=== PATIENT | female | born 1940 | race Caucasian/White ===

== ENCOUNTER 2018-08-10 09:28 | Outpatient (CLI) | payer MEDICARE, OTHER ==
[2018-08-10] VITALS (8 sets, daily range): BP systolic 141–174; BP diastolic 57–78
[2018-08-10] MEDS ORDERED: CT SWABBABLE VALVE TRANS SET 1 EA INFUS.SET MC ONE (10:06)
[2018-08-10] MEDS ORDERED: METOPROLOL TARTRATE INJ 5 MG/5 ML AMPUL ONE (10:06)
[2018-08-10] MEDS ORDERED: IOHEXOL-350 100 ML VIAL IV ONE ×2 (10:07→11:01)
[2018-08-10] MEDS ORDERED: IV NS 0.9% 250 ML IV ONE (10:07)
--- NOTE | 2018-08-10 10:30 | NUR ---
Pt received, A&Ox4, no distress noted, ambulatory; medical hx, orders reviewed in paper chart with pt. DON. IV HL started on R AC #18. flushed patent. Metoprolol IVP administered per protocol to achieve HR within parameters. Educated throughout procedure.
--- NOTE | 2018-08-10 11:35 | NUR ---
IV HL dc'd, VSS, no distress noted. Ambulated with steady gait to bathroom. DC in stable condition with all belongings accompanied by RN. Picked up by son.
== END 2018-08-10 23:59 | disposition home or self-care (01) ==
LOC: CT 09:28
PROVIDERS: ATTEND Internal Medicine Interventional Cardiology
DX: I65.21 Occlusion and stenosis of right carotid artery (principal); I70.0 Atherosclerosis of aorta
CPT/HCPCS: 75574; J3490; J7050; Q9967 ×2

== ENCOUNTER 2019-05-12 07:13 | Outpatient (CLI) | payer MEDICARE, OTHER ==
[2019-05-12] MEDS ORDERED: REGADENOSON 0.4 MG/5 ML DISP.SYRIN IVP ONE (08:30)
== END 2019-05-12 23:59 | disposition home or self-care (01) ==
LOC: NM 07:13
PROVIDERS: ATTEND Internal Medicine Interventional Cardiology
DX: R07.9 Chest pain, unspecified (principal); I10 Essential (primary) hypertension; R55 Syncope and collapse; M19.90 Unspecified osteoarthritis, unspecified site
CPT/HCPCS: 78452; A9502; J2785

== ENCOUNTER 2019-08-07 07:29 | Emergency (ER) | payer MEDICARE, OTHER ==
[~2019-08-07] VITALS: Ht 154.9 cm; Wt 72.1 kg
--- NOTE | 2019-08-07 07:35 | NUR ---
CAME IN FOR R SHOULDER AND ARM PAIN x 1WEEK, DENIES INJURY/TRAUMA. WENT TO PAIN MANAGEMENT MD, INJECTED MEDS, WORST PAIN TODAY 10/10PS. TO ER BED 9, HOOKED TO MONITOR, PROVIDED W WARM BLANKET, DR WILDE AT BEDSIDE
--- NOTE | 2019-08-07 07:43 | NUR ---
SCORER HELPER AT BEDSIDE
--- NOTE | 2019-08-07 08:37 | NUR ---
Patient discharged to home with family in stable condition. Written and verbal after care instructions given. Patient verbalizes understanding of instruction.
[2019-08-07 08:38] VITALS: BP 137/84
== END 2019-08-07 08:38 | disposition home or self-care (01) ==
LOC: ER 07:35
DX: M25.511 Pain in right shoulder (principal); I10 Essential (primary) hypertension; F41.9 Anxiety disorder, unspecified; Z98.890 Other specified postprocedural states
CPT/HCPCS: 73030-TC

== ENCOUNTER 2019-08-13 08:37 | Emergency (ER) | payer MEDICARE, OTHER ==
[~2019-08-13] VITALS: Ht 157.5 cm; Wt 68.0 kg
[2019-08-13 08:43] VITALS: BP 153/92
[2019-08-13] MEDS ORDERED: HYDROMORPHONE 1 MG/1 ML DISP.SYRIN ONE (08:54)
[2019-08-13] MEDS ORDERED: ONDANSETRON 4 MG TAB.RAPDIS SL ONE (09:00)
[2019-08-13] MEDS ORDERED: KETOROLAC TROMETHAMINE INJ 30 MG/ML VIAL IM ONE (09:00)
[2019-08-13] MEDS ORDERED: HYDROMORPHONE 1 MG/1 ML DISP.SYRIN IM ONE (09:00)
[2019-08-13] MEDS ORDERED: ONDANSETRON 4 MG TAB.RAPDIS ONE (09:00)
[2019-08-13] MEDS ORDERED: KETOROLAC TROMETHAMINE INJ 30 MG/ML VIAL ONE (09:00)
== END 2019-08-13 09:08 | disposition home or self-care (01) ==
LOC: ER 08:37
DX: M54.12 Radiculopathy, cervical region (principal); I10 Essential (primary) hypertension; F41.9 Anxiety disorder, unspecified; Z98.890 Other specified postprocedural states
CPT/HCPCS: 96372 ×2; 99283; J1170; J1885; Q0162

== ENCOUNTER 2019-09-30 13:20 | Inpatient (IN) | payer MEDICARE, OTHER ==
[~2019-09-30] VITALS: Ht 154.9 cm; Wt 69.9 kg
--- NOTE | 2019-09-30 13:40 | NUR ---
INTERMITTENT MIDSTERNAL CHEST PAIN X 3 DAYS. PATIENT A/OX4, BREATHING EVEN AND UNLABORED, NO SOB NOTED, KEPT COMFORTABLE. CHANGED INTO GOWN, ATTACHED TO THE COBBLER APPRENTICE.
[2019-09-30 13:42] LABS: BASOPHILS # (AUTO) 0.1 /CMM (0.0-0.2); BASOPHILS % (AUTO) 1.4 % (0.0-2.0); EOSINOPHILS % (AUTO) 3.4 % (0.0-6.0); HEMATOCRIT 39 % (33-45); HEMOGLOBIN 12.8 g/dL (11.5-14.8); LYMPHOCYTES # (AUTO) 2.3 /CMM (0.8-4.8); LYMPHOCYTES % (AUTO) 26.5 % (20.0-44.0); MEAN CORPUSCULAR HGB CONC 33 g/dl (31.0-36.0); MEAN CORPUSCULAR VOLUME 88 fL (82-100); MONOCYTES # (AUTO) 0.7 /CMM (0.1-1.30); MONOCYTES % (AUTO) 7.8 % (2.0-12.0); NEUTROPHILS # (AUTO) 5.4 /CMM (1.8-8.9); NEUTROPHILS % (AUTO) 60.9 % (43.0-81.0); PLATELET COUNT (AUTO) 269 /CMM (150-450); RED BLOOD CELL COUNT(AUTO) 4.46 MIL/uL (4.0-5.2); WHITE BLOOD COUNT (AUTO) 8.8 K/uL (4.3-11.0)
[2019-09-30 13:50] LABS: CALCIUM, SERUM 8.6 mg/dL (8.5-10.1); CARBON DIOXIDE 30 mmol/L (21-32); CHLORIDE 107 mmol/L (98-107); CREATININE 0.7 mg/dL (0.6-1.3); GLUCOSE 96 mg/dL (74-106); POTASSIUM 3.6 mmol/L (3.5-5.1); SODIUM SERUM 143 mmol/L (136-145); UREA NITROGEN, BLOOD 22 mg/dL (7-18)
[2019-09-30] MEDS ORDERED: MELO-107 PO (14:32)
[2019-09-30] MEDS ORDERED: QUET25TA PO (14:32)
[2019-09-30] MEDS ORDERED: LEVO50TA8 PO (14:32)
[2019-09-30] MEDS ORDERED: ERGO500014 PO (14:32)
[2019-09-30] MEDS ORDERED: GABA-532 PO (14:32)
[2019-09-30] MEDS ORDERED: SIMV-46 PO (14:32)
[2019-09-30] MEDS ORDERED: AMLO5TAB9 PO (14:32)
[2019-09-30] MEDS ORDERED: LOSA100T31 PO (14:32)
[2019-09-30] MEDS ORDERED: DULO30CA52 PO (14:32)
--- NOTE | 2019-09-30 14:58 | NUR ---
SUBMITTED MOVE SHEET AND CALLED FOR TELE BED. DR. KEY
[2019-09-30] MEDS ORDERED: OMEP20CA15 PO (15:18)
--- NOTE | 2019-09-30 15:30 | NUR ---
PATIENT STILL C/O MILD CHEST PAIN, NO DISTRESS, KEPT COMFORTABLE. AMBULATE TO RESTROOM.
--- NOTE | 2019-09-30 16:15 | NUR ---
GOT BED 112-2
--- NOTE | 2019-09-30 16:49 | NUR ---
REPORT GIVEN TO ZACK ROCA.
--- NOTE | 2019-09-30 17:29 | NUR ---
HORACE CALLED ITS AUDREY
--- NOTE | 2019-09-30 17:47 | NUR ---
PATIENT TRANSFERRED TO ROOM 112-2 VIA ACLS PROTOCOL. IN NO DISTRESS, AMBULATORY WITH STEADY GAIT. ENDORSED TO ZACK ROCA.
--- NOTE | 2019-09-30 17:50 | NUR ---
Received patient awake , alert and oriented x4 , gait is steady, able to walk with no assistance, independent with ADL's. Breathing even and unlabored on room air, saturating 98%. VS are stable. Skin inspected and intact. Patient on regular diet at home. IV line to the left AC G 18 flushing well. Home medications provided. Patient oriented to to the unit and room; educated to use call light for assistance. Patient denies chest pain at this time. Patient placed on tele monitor ; NSR 63 with PVS's .Safety precautions implemented. Valuable form completed and sighed by patient. Admitting doctor Jonah , called from ER. Awaiting for adm. orders.
[2019-09-30 18:29] VITALS: BP 121/56
--- NOTE | 2019-09-30 19:50 | NUR ---
RN Notes Patient awake, alert and oriented x4, on semi fowlers position, on room air with good saturation. Patient denies chest pain, SOB, nausea and vomiting at this time. IV access on left AC patent and intact. Admission orders received from Dr Liang, noted and carried out. Plan of care discussed with the patient and verbalized understanding. Kept comfortable and attended with call light within reach. Will continue to monitor patient.
[2019-09-30 20:00] VITALS: BP 117/64
[2019-09-30] MEDS ORDERED: MAGNESIUM HYDROXIDE 30 ML UDC PO PRN (20:00)
[2019-09-30] MEDS ORDERED: ONDANSETRON HCL/PF 4 MG/2 ML VIAL IVP PRN (20:00)
[2019-09-30] MEDS ORDERED: ZOLPIDEM TARTRATE 5 MG TABLET PO PRN (20:00)
[2019-09-30] MEDS ORDERED: MAG HYDROX/AL HYDROX/SIMETH 30 ML UDC PO PRN (20:00)
[2019-09-30] MEDS ORDERED: ACETAMINOPHEN 325 MG TABLET PO PRN (20:00)
[2019-09-30] MEDS ORDERED: Z GUARD REMEDY 2 OZ OINT TP PRN (20:00)
[2019-09-30] MEDS: QUETIAPINE FUMARATE 25 MG TABLET PO SCH (21:21)
[2019-09-30] MEDS: HYDROCODONE/APAP 5/325MG 1 EACH TABLET PO PRN (23:47)
--- NOTE | 2019-09-30 23:47 | NUR ---
RN Notes Per patient she has chronic pain in her right arm, and now complaining of pain 03/03. [place] 5/325 mg tab given PO. Will continue to monitor.
[2019-10-01] VITALS (7 sets, daily range): BP systolic 111–150; BP diastolic 46–62
[2019-10-01] MEDS: HYDROCODONE/APAP 5/325MG 1 EACH TABLET PO PRN ×3 (04:09→21:07)
--- NOTE | 2019-10-01 04:09 | NUR ---
RN Notes Patient complains of pain in her right arm, 03/03. [place] 5/325 mg tab given PO. Will continue to monitor.
[2019-10-01 07:22] LABS: BASOPHILS % (AUTO) 0.6 % (0.0-2.0); EOSINOPHILS % (AUTO) 3.7 % (0.0-6.0); HEMATOCRIT 37 % (33-45); HEMOGLOBIN 12.2 g/dL (11.5-14.8); LYMPHOCYTES # (AUTO) 2.4 /CMM (0.8-4.8); LYMPHOCYTES % (AUTO) 35.5 % (20.0-44.0); MEAN CORPUSCULAR HGB CONC 33 g/dl (31.0-36.0); MEAN CORPUSCULAR VOLUME 87 fL (82-100); MONOCYTES # (AUTO) 0.5 /CMM (0.1-1.30); MONOCYTES % (AUTO) 7.6 % (2.0-12.0); NEUTROPHILS # (AUTO) 3.5 /CMM (1.8-8.9); NEUTROPHILS % (AUTO) 52.6 % (43.0-81.0); PLATELET COUNT (AUTO) 215 /CMM (150-450); WHITE BLOOD COUNT (AUTO) 6.7 K/uL (4.3-11.0)
[2019-10-01 07:27] LABS: CHOLESTEROL 169 mg/dL (<200); HDL CHOLESTEROL 56 mg/dL (40-60); LDL 94 mg/dL (0-99); TRIGLYCERIDES 125 mg/dL (30-150)
--- NOTE | 2019-10-01 07:29 | NUR ---
RN Notes Patient sleep well overnight, vital signs stable, afebrile. Tele monitor reads sinus rhythm with PVCs. Denies chest pain, SOB, nausea and vomiting. Patient complain of pain on the right arm managed with [place] with mild relief, per patient its chronic. All needs met. Endorsed accordingly.
[2019-10-01] MEDS: PANTOPRAZOLE 40 MG TABLET.DR PO SCH (07:39)
[2019-10-01] MEDS: LEVOTHYROXINE SODIUM 50 MCG TABLET PO SCH (07:39)
--- NOTE | 2019-10-01 07:45 | NUR ---
RN OPENING NOTES RECEIVED PT IN BED, A/O X4. VERBALLY RESPONSIVE AND ABLE TO MAKE NEEDS KNOWN. DENIES ANY PAIN AT THE MOMENT. IN NO APPARENT DISTRESS NOTED. ON ROOM AIR, NO SOB NOTED. IV ACCESS ON LAC #18 SALINE LOCKED, INTACT, PATENT, AND FLUSHED WELL. NO INFILTRATION NOTED. BED ON LOWEST POSITION AND LOCKED. CALL LIGHT WITHIN REACH FOR EASY ACCESS. WILL CONTINUE TO MONITOR
[2019-10-01 08:23] LABS: CALCIUM, SERUM 8.8 mg/dL (8.5-10.1); CARBON DIOXIDE 26 mmol/L (21-32); CHLORIDE 107 mmol/L (98-107); CREATININE 0.7 mg/dL (0.6-1.3); GLUCOSE 106 mg/dL (74-106); PHOSPHORUS 4.3 mg/dL (2.5-4.9); POTASSIUM 3.6 mmol/L (3.5-5.1); SODIUM SERUM 143 mmol/L (136-145); UREA NITROGEN, BLOOD 21 mg/dL (7-18)
[2019-10-01] MEDS: ASPIRIN 81 MG TAB.CHEW PO SCH (08:41)
[2019-10-01] MEDS: GABAPENTIN 100 MG CAPSULE PO SCH ×2 (08:41→17:17)
[2019-10-01] MEDS: DULOXETINE HCL 30 MG CAPSULE.DR PO SCH (08:42)
[2019-10-01] MEDS: AMLODIPINE BESYLATE 5 MG TABLET PO SCH (08:42)
[2019-10-01] MEDS: LOSARTAN POTASSIUM 50 MG TABLET PO SCH (08:42)
[2019-10-01] MEDS ORDERED: IV NS 0.9% 500 ML IV PRN (09:00)
[2019-10-01] MEDS ORDERED: NITROGLYCERIN 0.4 MG/TAB BOTTLE SL ONE (09:00)
[2019-10-01] MEDS ORDERED: METOPROLOL TARTRATE INJ 5 MG/5 ML AMPUL IVP PRN (09:00)
[2019-10-01] MEDS ORDERED: IV NS 0.9% 250 ML IV ONE (09:06)
[2019-10-01] MEDS ORDERED: IOHEXOL-350 100 ML VIAL IV ONE (09:06)
[2019-10-01] MEDS ORDERED: NITROGLYCERIN 0.4 MG/TAB BOTTLE ONE (09:10)
[2019-10-01] MEDS ORDERED: METOPROLOL TARTRATE INJ 5 MG/5 ML AMPUL ONE (09:17)
--- NOTE | 2019-10-01 09:26 | NUR ---
CTA heart completed given Metoprolol 5mg IVP and NTG 0.5 mg Sl. tolerated procedure; denies CP/SOB at this time; sent to floor via wheelchair
[2019-10-01] MEDS: POTASSIUM CHLORIDE 20 MEQ TAB.PRT.SR PO SCH ×3 (09:46→11:01)
[2019-10-01] MEDS: IV NS 0.9% 1,000 ML IV SCH ×2 (09:50→17:00)
--- NOTE | 2019-10-01 17:00 | NUR ---
RN NOTES NS 0.9% 1000ML THAT IS SCHEDULED FOR 1700 IS NOT ADMINISTERED DUE TO THE PREVIOUS IV FLUIDS IS NOT FINISHED YET.
[2019-10-01] MEDS ORDERED: SIMVASTATIN 20 MG TABLET PO SCH (18:00)
--- NOTE | 2019-10-01 18:54 | NUR ---
RN NOTES PATIENT REFUSED TO FINISHED HER IV FLUIDS. VERBALIZED NOT WANTING TO HAVE IT ANYMORE. EXPLAINED RISKS AND BENEFITS TOGETHER WITH THE PM NURSE AT BEDSIDE, STILL REFUSED TO HAVE IT RUNNING.
--- NOTE | 2019-10-01 19:00 | NUR ---
MS RN OPENING NOTES: RECEIVED PATIENT RESTING IN BED, A/O X4. REFUSED THE IVF,DESPITE OF TELLING HER THE IMPORTANCE OF THE IVF. AMBULATORY, STEADY GAIT. NO SOB NOTED. CALL LIGHT WITHIN REACH. BED IN LOWEST AND LOCKED POSITION.
--- NOTE | 2019-10-01 19:18 | NUR ---
RN CLOSING NOTES PATIENT IN BED, AWAKE, RESTING COMFORTABLY. IN NO APPARENT DISTRESS. VITAL SIGNS STABLE. IV ACCESS ON L AC INTACT. NO SIGNS OF INFILTRATION NOTED. ON ROOM AIR, SATURATING WELL. NO SOB NOTED. ALL NEEDS MET. ENDORSED TO PM RN FOR CONTINUITY OF CARE AND AWARE ABOUT THE REFUSAL OF IV FLUIDS
--- NOTE | 2019-10-01 20:38 | NUR ---
V/S TAKEN BY CRISTI ALMEIDA, RECORDED. AFEBRILE.
[2019-10-01] MEDS: QUETIAPINE FUMARATE 25 MG TABLET PO SCH (21:00)
[2019-10-02 04:00] VITALS: BP 150/62
--- NOTE | 2019-10-02 04:58 | NUR ---
MS RN CLOSING NOTES: PATIENT IS RESTING IN BED, CALL LIGHT WITHIN REACH. BED IN LOWEST AND LOCKED POSITION. AMBULATORY.
[2019-10-02 06:30] LABS: BASOPHILS % (AUTO) 0.9 % (0.0-2.0); EOSINOPHILS % (AUTO) 4.3 % (0.0-6.0); HEMATOCRIT 35 % (33-45); HEMOGLOBIN 11.5 g/dL (11.5-14.8); LYMPHOCYTES # (AUTO) 1.9 /CMM (0.8-4.8); MEAN CORPUSCULAR HGB CONC 33 g/dl (31.0-36.0); MEAN CORPUSCULAR VOLUME 87 fL (82-100); MONOCYTES # (AUTO) 0.4 /CMM (0.1-1.30); MONOCYTES % (AUTO) 6.9 % (2.0-12.0); NEUTROPHILS # (AUTO) 2.9 /CMM (1.8-8.9); NEUTROPHILS % (AUTO) 52.9 % (43.0-81.0); PLATELET COUNT (AUTO) 195 /CMM (150-450); RED BLOOD CELL COUNT(AUTO) 3.98 MIL/uL (4.0-5.2); WHITE BLOOD COUNT (AUTO) 5.5 K/uL (4.3-11.0)
[2019-10-02 06:45] LABS: BILIRUBIN,TOTAL 0.2 mg/dL (0.2-1.0); CALCIUM, SERUM 8.3 mg/dL (8.5-10.1); CREATININE 0.7 mg/dL (0.6-1.3); MAGNESIUM 1.9 mg/dL (1.8-2.4); PHOSPHORUS 4.1 mg/dL (2.5-4.9); POTASSIUM 3.8 mmol/L (3.5-5.1); TOTAL PROTEIN, SERUM 6.1 g/dL (6.4-8.2)
--- NOTE | 2019-10-02 07:22 | NUR ---
MS RN OPENING NOTE RECEIVED PATIENT IN BED SLEEPING COMFORTABLY. PATIENT IN NO ACUTE DISTRESS. NO SOB NOTED. PATIENT BREATHING IS EVEN AND UNLABORED. PATIENT SAFETY PRECAUTIONS IN PLACE. PATIENT BED IS LOCKED AND IN LOWEST POSITION. CALL LIGHT WITHIN REACH. WILL CONTINUE TO MONITOR.
[2019-10-02 08:00] VITALS: BP_SYST 121; BP_SYST 128; BP_DIAS 59; BP_DIAS 63
[2019-10-02] MEDS: DULOXETINE HCL 30 MG CAPSULE.DR PO SCH (08:06)
[2019-10-02] MEDS: GABAPENTIN 100 MG CAPSULE PO SCH (08:06)
[2019-10-02] MEDS: LOSARTAN POTASSIUM 50 MG TABLET PO SCH (08:07)
[2019-10-02] MEDS: PANTOPRAZOLE 40 MG TABLET.DR PO SCH (08:07)
[2019-10-02] MEDS: ASPIRIN 81 MG TAB.CHEW PO SCH (08:07)
[2019-10-02] MEDS: LEVOTHYROXINE SODIUM 50 MCG TABLET PO SCH (08:07)
[2019-10-02] MEDS: AMLODIPINE BESYLATE 5 MG TABLET PO SCH (08:07)
[2019-10-02] MEDS ORDERED: ASPI-1169 PO (09:19)
--- NOTE | 2019-10-02 11:00 | NUR ---
MS RN NOTE PATIENT REFUSING SKIN ASSESSMENT. EDUCATED RISKS VS BENEFITS. PATIENT CONTINUES TO REFUSE.
[2019-10-02 12:00] VITALS: BP 122/58
--- NOTE | 2019-10-02 13:58 | NUR ---
MS PROPRIETARY TRADER NOTE PATIENT MEDICALLY CLEARED FOR DISCHARGE. PATIENT IN NO ACUTE DISTRESS. NO SOB NOTED. PATIENT BREATHING IS EVEN AND UNLABORED. VITAL SIGNS WNL. DC INSTRUCTIONS PROVIDED. PATIENT VERBALIZED UNDERSTANDING. PATIENT REFUSED TO HAVE SKIN ASSESSMENT. EDUCATED RISKS VS BENEFITS. PATIENT CONTINUED TO REFUSE. PATIENT IV REMOVED. ID BAND REMOVED. PATIENT SIGNED BELONGINGS LIST AND HAS BELONGINGS WITH HER. PATIENT KEPT CLEAN, DRY AND COMFORTABLE THROUGHOUT SHIFT. PATIENT NEEDS AND CONCERNS ADDRESSED. PATIENT GOING BACK HOME WITH SON, AMBULATORY WITH STEADY GAIT BACK TO CAR. MD AWARE OF DISCHARGE.
[2019-10-03] MEDS ORDERED: ERGOCALCIFEROL (VITAMIN D 2) 50,000 UNIT CAPSULE PO SCH (09:00)
== END 2019-10-02 14:15 | disposition home or self-care (01) | DRG 552 ==
LOC: ER 13:21 → TELE1 16:48 → MEDSG1 10-01 10:29
PROVIDERS: ADMIT Internal Medicine; ATTEND Internal Medicine
DX: M54.14 Radiculopathy, thoracic region (principal); N17.9 Acute kidney failure, unspecified; I10 Essential (primary) hypertension; E78.5 Hyperlipidemia, unspecified; I25.10 Atherosclerotic heart disease of native coronary artery without angina pectoris; F41.9 Anxiety disorder, unspecified; F32.9 Major depressive disorder, single episode, unspecified; Z98.890 Other specified postprocedural states; M54.12 Radiculopathy, cervical region; Z79.899 Other long term (current) drug therapy; G89.29 Other chronic pain; I70.0 Atherosclerosis of aorta; E66.9 Obesity, unspecified; G47.33 Obstructive sleep apnea (adult) (pediatric); I25.84 Coronary atherosclerosis due to calcified coronary lesion; J84.10 Pulmonary fibrosis, unspecified
CPT/HCPCS: 36415; 70450-TC; 71045-TC; 75574; 80048-TC; 80053-TC; 80061-TC; 83735-TC; 84100-TC; 84484-TC; 85025-TC; 85652-TC; 87081-TC; G0378; J3490; J7030; J7050; Q9967

== ENCOUNTER 2021-01-16 11:14 | Outpatient (CLI) | payer MEDICARE, OTHER ==
[~2021-01-16 11:14] MED LIST: AMLO-212 PO; ASPI-1169 PO; DULO30CA52 PO; ERGO500014 PO; LEVO50TA8 PO; LOSA100T31 PO; MELO-107 PO; OMEP20CA15 PO; QUET25TA PO; SIMV-46 PO
== END 2021-01-16 23:59 | disposition home or self-care (01) ==
LOC: MSC 11:14
PROVIDERS: ATTEND Internal Medicine
DX: M81.0 Age-related osteoporosis without current pathological fracture (principal)
CPT/HCPCS: 96372; J0897

== ENCOUNTER 2021-05-18 16:21 | Outpatient (CLI) | payer MEDICARE, OTHER ==
[~2021-05-18 16:21] MED LIST changes: -ERGO500014 PO; +ERGO500093 PO
== END 2021-05-18 23:59 | disposition home or self-care (01) ==
LOC: MSC 16:21
PROVIDERS: ATTEND Internal Medicine
DX: N39.0 Urinary tract infection, site not specified (principal); R06.02 Shortness of breath; I10 Essential (primary) hypertension; M81.0 Age-related osteoporosis without current pathological fracture; M43.26 Fusion of spine, lumbar region; G47.00 Insomnia, unspecified; J44.9 Chronic obstructive pulmonary disease, unspecified; G47.33 Obstructive sleep apnea (adult) (pediatric); K22.70 Barrett's esophagus without dysplasia; M19.90 Unspecified osteoarthritis, unspecified site

== ENCOUNTER → 2021-05-22 | Outpatient (CLI) | payer MEDICARE, OTHER | END | disposition home or self-care (01) | LOC: MSC 14:15 | PROVIDERS: ATTEND Internal Medicine | DX: N39.0 Urinary tract infection, site not specified (principal); R06.02 Shortness of breath; I10 Essential (primary) hypertension; M81.0 Age-related osteoporosis without current pathological fracture; M43.26 Fusion of spine, lumbar region; G47.00 Insomnia, unspecified; J44.9 Chronic obstructive pulmonary disease, unspecified; G47.33 Obstructive sleep apnea (adult) (pediatric); K22.70 Barrett's esophagus without dysplasia; M19.90 Unspecified osteoarthritis, unspecified site ==

== ENCOUNTER 2021-06-12 09:16 | Outpatient (CLI) | payer MEDICARE, OTHER ==
[2021-06-12 10:41] LABS: ALBUMIN 3.7 g/dL (3.4-5.0); BILIRUBIN,TOTAL 0.2 mg/dL (0.2-1.0); CALCIUM, SERUM 8.3 mg/dL (8.5-10.1); CREATININE 0.8 mg/dL (0.6-1.3); MAGNESIUM 1.7 mg/dL (1.8-2.4); PHOSPHORUS 3.4 mg/dL (2.5-4.9); POTASSIUM 3.4 mmol/L (3.5-5.1)
[2021-06-12 13:14] LABS: BASOPHILS % (AUTO) 0.2 % (0.0-2.0); EOSINOPHILS % (AUTO) 4.6 % (0.0-6.0); HEMATOCRIT 38 % (33-45); HEMOGLOBIN 12.3 g/dL (11.5-14.8); LYMPHOCYTES # (AUTO) 1.6 K/uL (0.8-4.8); LYMPHOCYTES % (AUTO) 29.4 % (20.0-44.0); MEAN CORPUSCULAR HGB CONC 32 g/dl (31.0-36.0); MEAN CORPUSCULAR VOLUME 87 fL (82-100); MONOCYTES # (AUTO) 0.3 K/uL (0.1-1.30); NEUTROPHILS # (AUTO) 3.3 K/uL (1.8-8.9); NEUTROPHILS % (AUTO) 59.8 % (43.0-81.0); PLATELET COUNT (AUTO) 242 K/uL (150-450); RED BLOOD CELL COUNT(AUTO) 4.38 MIL/uL (4.0-5.2); WHITE BLOOD COUNT (AUTO) 5.6 K/uL (4.3-11.0)
== END 2021-06-12 23:59 | disposition home or self-care (01) ==
LOC: MSC 09:16
PROVIDERS: ATTEND Internal Medicine
DX: Z01.818 Encounter for other preprocedural examination (principal); G89.29 Other chronic pain; M54.50 Low back pain, unspecified; M43.26 Fusion of spine, lumbar region; Z87.440 Personal history of urinary (tract) infections; I10 Essential (primary) hypertension; M81.0 Age-related osteoporosis without current pathological fracture; R06.00 Dyspnea, unspecified; J44.9 Chronic obstructive pulmonary disease, unspecified; G47.00 Insomnia, unspecified; G47.33 Obstructive sleep apnea (adult) (pediatric); K22.70 Barrett's esophagus without dysplasia; M19.90 Unspecified osteoarthritis, unspecified site; Z79.899 Other long term (current) drug therapy
CPT/HCPCS: 36415; 71045; 80053; 80061; 83735; 84100; 85025; 85730; G0463

== ENCOUNTER → 2021-06-22 | Outpatient (CLI) | payer MEDICARE, OTHER | END | disposition home or self-care (01) | LOC: MSC 15:00 | PROVIDERS: ATTEND Internal Medicine | DX: N39.0 Urinary tract infection, site not specified (principal); I10 Essential (primary) hypertension; M81.0 Age-related osteoporosis without current pathological fracture; M43.26 Fusion of spine, lumbar region; R06.00 Dyspnea, unspecified; J44.9 Chronic obstructive pulmonary disease, unspecified; G47.00 Insomnia, unspecified; G47.33 Obstructive sleep apnea (adult) (pediatric); K22.70 Barrett's esophagus without dysplasia; M19.90 Unspecified osteoarthritis, unspecified site; Z79.899 Other long term (current) drug therapy ==

== ENCOUNTER 2021-08-30 09:48 | Outpatient (CLI) | payer MEDICARE, OTHER | END 2021-08-30 23:59 | disposition home or self-care (01) | LOC: MSC 09:48 | PROVIDERS: ATTEND Internal Medicine | DX: M54.16 Radiculopathy, lumbar region (principal); M43.26 Fusion of spine, lumbar region; M81.0 Age-related osteoporosis without current pathological fracture; M19.90 Unspecified osteoarthritis, unspecified site; Z79.1 Long term (current) use of non-steroidal anti-inflammatories (NSAID); G47.00 Insomnia, unspecified; Z87.440 Personal history of urinary (tract) infections; R06.00 Dyspnea, unspecified; I10 Essential (primary) hypertension; J44.9 Chronic obstructive pulmonary disease, unspecified; Z79.51 Long term (current) use of inhaled steroids; G47.33 Obstructive sleep apnea (adult) (pediatric); K22.70 Barrett's esophagus without dysplasia; Z79.899 Other long term (current) drug therapy ==

== ENCOUNTER 2021-09-05 09:50 | Outpatient (CLI) | payer MEDICARE, OTHER ==
--- NOTE | 2021-10-02 11:01 | NUR ---
Late Entrance done by TIMOTHY 10/02/2021 at 1055. Order obtained and reviewed. Prolia 60mg/1ml given on right arm subq Patient tolerated procedure well. pt is scheduled to return in 6 months. TIMOTHY
== END 2021-09-05 23:59 | disposition home or self-care (01) ==
LOC: MSC 09:50
PROVIDERS: ATTEND Internal Medicine
DX: M81.0 Age-related osteoporosis without current pathological fracture (principal)
CPT/HCPCS: J0897 ×2; 96372

== ENCOUNTER 2021-10-10 18:23 | Inpatient (IN) | payer MEDICARE, OTHER ==
[~2021-10-10] VITALS: Ht 160 cm; Wt 73.5 kg
[2021-10-10] MEDS ORDERED: ALBUTEROL FS 2.5 MG/3 ML VIAL.NEB NEB ONE (18:30)
[2021-10-10] MEDS ORDERED: predniSONE 20 MG TABLET PO ONE (18:30)
[2021-10-10] MEDS ORDERED: LORAZEPAM INJ 2 MG/ML VIAL IV ONE (18:30)
[2021-10-10] MEDS ORDERED: IV NS 0.9% 1,000 ML IV ONE (18:30)
[2021-10-10] MEDS ORDERED: IPRATROPIUM NEB FS 0.5 MG/2.5 ML AMPUL.NEB NEB ONE (18:30)
[2021-10-10] MEDS ORDERED: predniSONE 20 MG TABLET ONE (18:36)
[2021-10-10] MEDS ORDERED: LORAZEPAM INJ 2 MG/ML VIAL ONE (18:37)
--- NOTE | 2021-10-10 18:41 | NUR ---
TIFFANY FROM HOME C/O SOB W/ INITIAL SATS IN THE 70'S WHILE USING SPIROMETER ARRIVED ON CPAP, PT C/O SOB SINCE YESTERDAY. WORST X 2 HOURS. THE OXYGEN SATURATION IN ROOM AIR IS AT 93%. THE PATIENT DENIES PAIN. ATTACHED TO THE MONITOR. WILL CONTINUE TO MONITOR THE PATIENT.
--- NOTE | 2021-10-10 18:56 | NUR ---
VENETIAN BLIND CLEANER AT THE BEDSIDE
--- NOTE | 2021-10-10 18:56 | NUR ---
BLOOD SPECIMEN COLLECTED AND SENT TO THE LAB
[2021-10-10] MEDS ORDERED: ALBUTEROL FS 2.5 MG/3 ML VIAL.NEB ONE (19:00)
[2021-10-10] MEDS ORDERED: IPRATROPIUM NEB FS 0.5 MG/2.5 ML AMPUL.NEB ONE (19:00)
--- NOTE | 2021-10-10 19:18 | NUR ---
REPORT GIVEN TO NURSE KELSIE FOR ADONAY
[2021-10-10 19:59] LABS: BASOPHILS # (AUTO) 0.1 K/uL (0.0-0.2); BASOPHILS % (AUTO) 0.9 % (0.0-2.0); EOSINOPHILS % (AUTO) 2.1 % (0.0-6.0); HEMATOCRIT 32 % (33-45); HEMOGLOBIN 10.6 g/dL (11.5-14.8); LYMPHOCYTES % (AUTO) 17.5 % (20.0-44.0); MEAN CORPUSCULAR HGB CONC 33 g/dl (31.0-36.0); MEAN CORPUSCULAR VOLUME 86 fL (82-100); MONOCYTES # (AUTO) 0.2 K/uL (0.1-1.30); MONOCYTES % (AUTO) 4.2 % (2.0-12.0); NEUTROPHILS # (AUTO) 4.4 K/uL (1.8-8.9); NEUTROPHILS % (AUTO) 75.3 % (43.0-81.0); PLATELET COUNT (AUTO) 211 K/uL (150-450); RED BLOOD CELL COUNT(AUTO) 3.76 MIL/uL (4.0-5.2); WHITE BLOOD COUNT (AUTO) 5.9 K/uL (4.3-11.0)
--- NOTE | 2021-10-10 20:00 | NUR ---
COVID ANTIGEN SWAB DONE, SENT TO LAB
[2021-10-10 20:30] LABS: CALCIUM, SERUM 8.5 mg/dL (8.5-10.1); CREATININE 0.8 mg/dL (0.6-1.3); POTASSIUM 3.9 mmol/L (3.5-5.1); TOTAL PROTEIN, SERUM 7.1 g/dL (6.4-8.2)
[2021-10-10 20:40] LABS: ALBUMIN 3.3 g/dL (3.4-5.0)
--- NOTE | 2021-10-10 20:56 | NUR ---
TELE 326-2
[2021-10-10] MEDS ORDERED: ONDANSETRON HCL/PF 4 MG/2 ML VIAL IVP PRN (21:00)
[2021-10-10] MEDS ORDERED: MAGNESIUM HYDROXIDE 30 ML UDC PO PRN (21:00)
[2021-10-10] MEDS ORDERED: Z GUARD REMEDY 4 OZ OINT TP PRN (21:00)
[2021-10-10] MEDS ORDERED: FUROSEMIDE 40 MG/4 ML VIAL IV ONE (21:00)
[2021-10-10] MEDS ORDERED: MAG HYDROX/AL HYDROX/SIMETH 30 ML UDC PO PRN (21:00)
[2021-10-10] MEDS ORDERED: ENOXAPARIN SODIUM 60 MG/0.6 ML DISP.SYRIN SQ ONE (21:00)
[2021-10-10] MEDS ORDERED: ACETAMINOPHEN 325 MG TABLET PO PRN (21:00)
[2021-10-10 21:24] LABS: BILIRUBIN,DIRECT 0.1 mg/dL (0.0-0.2); BILIRUBIN,TOTAL 0.3 mg/dL (0.2-1.0)
[2021-10-10] MEDS ORDERED: FUROSEMIDE 40 MG/4 ML VIAL ONE (21:27)
[2021-10-10] MEDS ORDERED: CEFTRIAXONE 1GM BAG (ER ONLY) 50 ML IV ONE (21:36)
--- NOTE | 2021-10-10 21:36 | NUR ---
REPORT GIVEN TO CHANELLE OH
[2021-10-10] MEDS: CEFTRIAXONE 1 G in IV D5W 50 ML IV SCH (21:37)
[2021-10-10] MEDS ORDERED: ENOXAPARIN SODIUM 80 MG/0.8 ML DISP.SYRIN SQ ONE (21:38)
[2021-10-10] MEDS: QUETIAPINE FUMARATE 25 MG TABLET PO SCH (21:57)
--- NOTE | 2021-10-10 22:00 | NUR ---
seroquel 75mg po given
[2021-10-11] VITALS (8 sets, daily range): BP systolic 123–168; BP diastolic 71–94
--- NOTE | 2021-10-11 01:06 | NUR ---
PATIENT TRANSFERED UNDER ACLS.
--- NOTE | 2021-10-11 01:15 | NUR ---
SPRAY STAINERSOFTWARE TEST ANALYST NOTE RECEIVED PATIENT ALERT/ORIENTED X 4, PT ABLE TO MAKE NEEDS KNOWN. PT DENIES PAIN AT THIS TIME. PT STABLE ON 2 LPM OF OXYGEN VIA NC, NO S/S OF DISTRESS OR SOB NOTED, HOWEVER, SOB ON EXERTION. PT ON EXTERNAL CREDIT RISK SPECIALIST READING SINUS RHYTHM, HR: 71. VITAL SIGNS WNL. IV ACCESS ON LEFT HAND #20G INTACT AND FLUSHING WELL, SALINE LOCKED. PATIENT BELONGINGS DOCUMENTED, PT HAS [place] WITH $132 AND CREDIT CARDS BUT REFUSED TO PLACE IN LOCKER, PT STATED SHE WANTS TO KEEP IT WITH HER. PT HAS HAMMER TOES WITH AREAS OF REDNESS WELL A HOLE IN HER ABDOMEN WITH A "SCAB" INSIDE, PHOTOS TAKEN AND WOUND CONSULT ORDERED. SAFETY MEASURES IN PLACE: CALL LIGHT WITHIN REACH, SIDE RAILS UP X 2, BED LOCKED IN LOW POSITION, BED ALARM ON. WILL CONTINUE TO MONITOR PATIENT
--- NOTE | 2021-10-11 02:15 | NUR ---
CASH ACCOUNTANT NOTE NOTIFIED MOBILE NURSE MD ABOUT TROPONIN ELEVATED TO 0.621, NO NEW ORDERS. WILL CONTINUE TO MONITOR PATIENT
--- NOTE | 2021-10-11 06:41 | NUR ---
LABORER GOLD LEAF CLOSING NOTE PATIENT SLEEPING IN BED, EASILY AWAKENED, NO SIGNIFICANT CHANGES. PT STABLE ON 2 LPM OF OXYGEN VIA NC, NO S/S OF DISTRESS OR SOB NOTED, BREATHING EVEN AND UNLABORED. PATIENT ON EXTERNAL LACE MENDER READING SINUS RHYTHM WITH OCCASIONAL PAC'S AND PVC'S, HR: 71 . PATIENT NEEDS MET THROUGHOUT SHIFT. SAFETY MEASURES IN PLACE: CALL LIGHT WITHIN REACH, SIDE RAILS UP X 2, BED LOCKED IN LOW POSITION, BED ALARM ON. WILL ENDORSE TO DAY SHIFT NURSE FOR CONTINUITY OF CARE
[2021-10-11 06:57] LABS: BASOPHILS % (AUTO) 0.2 % (0.0-2.0); EOSINOPHILS % (AUTO) 0.1 % (0.0-6.0); HEMATOCRIT 33 % (33-45); HEMOGLOBIN 11.2 g/dL (11.5-14.8); LYMPHOCYTES # (AUTO) 0.7 K/uL (0.8-4.8); LYMPHOCYTES % (AUTO) 14.5 % (20.0-44.0); MEAN CORPUSCULAR HGB CONC 34 g/dl (31.0-36.0); MEAN CORPUSCULAR VOLUME 84 fL (82-100); MONOCYTES # (AUTO) 0.1 K/uL (0.1-1.30); MONOCYTES % (AUTO) 3.3 % (2.0-12.0); NEUTROPHILS # (AUTO) 3.7 K/uL (1.8-8.9); NEUTROPHILS % (AUTO) 81.9 % (43.0-81.0); PLATELET COUNT (AUTO) 224 K/uL (150-450); RED BLOOD CELL COUNT(AUTO) 3.93 MIL/uL (4.0-5.2); WHITE BLOOD COUNT (AUTO) 4.5 K/uL (4.3-11.0)
[2021-10-11 07:30] LABS: CHOLESTEROL 148 mg/dL (<200); D-DIMER 0.63 mg/L(FEU (0.17-0.50); HDL CHOLESTEROL 67 mg/dL (40-60); LDL 63 mg/dL (0-99); TRIGLYCERIDES 70 mg/dL (30-150)
[2021-10-11] MEDS ORDERED: LEVOTHYROXINE SODIUM 50 MCG TABLET PO SCH (07:30)
--- NOTE | 2021-10-11 07:30 | NUR ---
BANKING TEACHER OPENING NOTE PT IN BED ASLEEP, EASY TO AROUSE. A/O X4, FARSI SPEAKING. ABLE TO MAKE NEEDS KNOWN. NO S/SX OF ACUTE DISTRESS NOTED. NO SOB. BREATHING IS EVEN AND UNLABORED; TOLERATING WELL ON OXYGEN 2LPM. IV ACCESS LHAND#20 SL PATENT AND INTACT. PT WITH EXTERNAL LABORER CONCRETE PLANT WITH SR IWTH OCCASIONAL PAC AND PVC, HR 77. SAFETY MEASURES IN PLACE WITH BED LOCKED AND AT LOW POSITION WITH SIDE RAILS UP X 2. CALL LIGHT IS WITHIN EASY REACH. WILL CONTINUE TO MONITOR PATIENT THROUGHOUT SHIFT.
[2021-10-11] MEDS: LEVOTHYROXINE SODIUM 50 MCG TABLET PO SCH (08:07)
[2021-10-11] MEDS: DULOXETINE HCL 30 MG CAPSULE.DR PO SCH (08:08)
[2021-10-11] MEDS: PANTOPRAZOLE 40 MG TABLET.DR PO SCH (08:08)
[2021-10-11] MEDS: LOSARTAN POTASSIUM 50 MG TABLET PO SCH (08:10)
[2021-10-11] MEDS: MELOXICAM 7.5 MG TABLET PO SCH (08:10)
[2021-10-11] MEDS: AMLODIPINE BESYLATE 5 MG TABLET PO SCH (08:11)
[2021-10-11] MEDS: ASPIRIN 81 MG TAB.CHEW PO SCH (08:12)
[2021-10-11 08:33] LABS: CALCIUM, SERUM 7.7 mg/dL (8.5-10.1); CARBON DIOXIDE 25 mmol/L (21-32); CHLORIDE 104 mmol/L (98-107); CREATININE 0.5 mg/dL (0.6-1.3); GLUCOSE 126 mg/dL (74-106); PHOSPHORUS 3.4 mg/dL (2.5-4.9); POTASSIUM 3.8 mmol/L (3.5-5.1); SODIUM SERUM 140 mmol/L (136-145); UREA NITROGEN, BLOOD 11 mg/dL (7-18)
[2021-10-11] MEDS: FUROSEMIDE 40 MG/4 ML VIAL IV SCH ×3 (09:25→17:51)
[2021-10-11] MEDS: POTASSIUM CHLORIDE 20 MEQ TAB.PRT.SR PO SCH ×3 (09:25→11:15)
[2021-10-11] MEDS: ENOXAPARIN SODIUM 80 MG/0.8 ML DISP.SYRIN SQ SCH ×2 (09:25→21:02)
[2021-10-11] MEDS: METOPROLOL TARTRATE 50 MG TABLET PO SCH ×2 (09:26→21:01)
--- NOTE | 2021-10-11 12:47 | NUR ---
RN NOTE PER PT, PT TAKES OXYCODONE 10/325MG Q6HFOR PAIN. DR. CASTAÑEDA INFORMED WITH NEW ORDER TO FOR OXYCODONE 10/325MG Q6H PRN FOR PAIN. ORDERS READ BACK AND CARRIED OUT.
[2021-10-11] MEDS: oxyCODONE/APAP (5/325 MG) 1 UDTAB TABLET PO PRN ×3 (13:19→22:29)
[2021-10-11] MEDS ORDERED: IOHEXOL-350 100 ML VIAL IV ONE (14:15)
[2021-10-11] MEDS ORDERED: IV NS 0.9% 250 ML IV ONE (14:15)
[2021-10-11] MEDS ORDERED: CT SWABBABLE VALVE TRANS SET 1 EA INFUS.SET MC ONE (14:15)
[2021-10-11] MEDS ORDERED: NITROGLYCERIN 0.4 MG/TAB BOTTLE ONE (14:43)
[2021-10-11] MEDS ORDERED: METOPROLOL TARTRATE INJ 5 MG/5 ML AMPUL ONE ×2 (14:44→14:57)
[2021-10-11] MEDS: METOPROLOL TARTRATE INJ 5 MG/5 ML AMPUL IVP PRN ×4 (14:45→15:00)
[2021-10-11] MEDS ORDERED: NITROGLYCERIN 0.4 MG/TAB BOTTLE SL ONE (15:00)
--- NOTE | 2021-10-11 15:06 | NUR ---
pt consented to CTA heart 3D; brought in from the floor via wheelchair; Metoprolol 5mg IVP every 5 minutes x 4 doses and NTG 0.4 mg SL given; pt tolerated procedure; SS; BP post CTA is 136/58; report given to Carmela ROCA, sent back to floor via wheelchair
--- NOTE | 2021-10-11 17:10 | NUR ---
RN RAPID RESPONSE NOTE MANAGER OF PROGRAM WAS CALLED AT 1640. PT WAS EXITING RESTROOM AND SCREAMED FOR NURSE. I ARRIVED TO ROOM IMMEDIATELY AND FOUND PATIENT ABOUT TO PASS OUT. I WAS ABLE TO HOLD PATIENT SLOWLY TO FLOOR. PT WAS HAD EYES CLOSED AND UNRESPONSIVE. ASSISTED PT CAREFULLY AND SAFELY TO BED. MANAGER OF PROGRAM ARRIVED 1650. VITALS 172/115 ON MACHINE HR 107 AFIB ON TELE MONITOR. BS 109. PT GAINED CONSCIOUSNESS AT 1658. A/A/O X3. DR. COLBERT MADE AWARE WITH ORDERS READ BACK AND CARRIED OUT. PT IS CURRENTLY SINUS RHYTHM ON MONITOR AND IN STABLE CONDITION.
[2021-10-11] MEDS: SIMVASTATIN 20 MG TABLET PO SCH (17:51)
--- NOTE | 2021-10-11 18:56 | NUR ---
BROKERAGE CLERK CLOSING NOTE PT IN BED. REMINDED PATIENT NOT TO STAND UP OR WALK SHE MAY GET DIZZY AGAIN. NO S/SX OF ACUTE DISTRESS NOTED. NO SOB. BREATHING IS EVEN AND UNLABORED; TOLERATING WELL ON OXYGEN 2LPM. IV ACCESS LHAND#20 SL PATENT AND INTACT. PT WITH EXTERNAL TELEPHONE TRIAGE NURSE CURRENTLY SR [facility] OCCASIONAL PAC AND PVC, HR 79. SAFETY MEASURES IN PLACE WITH BED LOCKED AND AT LOW POSITION WITH SIDE RAILS UP X 2. CALL LIGHT IS WITHIN EASY REACH. ALL NEEDS MET THROUGHOUT SHIFT. WILL ENDORSE CONTINUITY OF CARE TO ONCOMING SHIFT.
--- NOTE | 2021-10-11 19:10 | NUR ---
RN opening notes Pt is sitting in bed comfortably watching TV. Pt is alert and orienetedX4. On 2 L NC. No SOB. No S/S of distress noted. IV site at L hand# 20 and RAc# 20 are clean, intact and flushes well. Tele monitor showed SR hr at 78. Safety precautions is maintained. Bed at low position, brakes locked, side rails upX3, hob elevated, bed alarm is on and call light is within reach. Will continue to monitor.
[2021-10-11] MEDS: CEFTRIAXONE 1 G in IV D5W 50 ML IV SCH (20:55)
[2021-10-11] MEDS: QUETIAPINE FUMARATE 25 MG TABLET PO SCH (21:19)
--- NOTE | 2021-10-11 21:45 | NUR ---
RN notes Pt is screaming in the room. Pt stated ' I'm trying to get up." Primary nurse and others went ot the room including a charge nurse. Educate and Explained risks and benefits several times important of safety and following orders. Tele monitor showed SR hr at 71. BP 149/71, pulse 71, respiration is 18 and O2 sat is 100% on 2 L NC. Pt is stable. no SOB and no S/S of distress noted. Pt is able to talk and verbalize understanding. Pt stated " I'm sorry." Safety precautions is maintained. Charge nurse is aware and informed. Will continue to monitor closely.
--- NOTE | 2021-10-11 22:32 | NUR ---
RN notes Pt is complaining of generalized pain and requesting pain med. administered percocet 2tabs/po/prn as ordered for pain. VS is stable. Safety precautions is maintained. Will continue to monitor.
[2021-10-12] VITALS: BP_SYST 109; BP_DIAS 53; BP_DIAS 59
[2021-10-12 04:00] VITALS: BP 126/83
--- NOTE | 2021-10-12 06:35 | NUR ---
RN closing notes Pt is resting in bed comfortably. Pt is alert and orientedX4. On 2 L NC. No SOB. No S/S of distress noted. IV site at L hand# 20 and LAc# 20 are clean, intact and flushes well. Tele monitor showed SR HR at 70. routine meds were given as ordered. kept Pt clean, dry and comfortable. Safety precautions is maintained. Bed at low position, brakes locked, side rails upX3, hob elevated, bed alarm is on and call light is within reach. Will endorse to am nurse for ADONAY.
--- NOTE | 2021-10-12 07:20 | NUR ---
SENIOR TERADATA DEVELOPER OPENING NOTES RECEIVED PATIENT IN BED, AWAKE, A/O X4, NO SIGNS OF ACUTE DISTRESS NOTED. ON O2 @ 2 LPM VIA N/C SATTING @100 %, NO SOB NOTED. WITH IV ACCESS ON LAC #20 G, LHAND #20 G, SALINE LOCKED. ON SENIOR DESIGN ENGINEERING SPECIALIST SHOWING NSR @74. NO CARDIAC DISTRESS NOTED. SAFETY MEASURES MAINTAINED. BED LOCKED AND IN LOWEST POSITION, SR UP X2, CALL LIGHT PLACED WITHIN EASY REACH. WILL CONTINUE TO MONITOR.
[2021-10-12] MEDS: PANTOPRAZOLE 40 MG TABLET.DR PO SCH (07:43)
[2021-10-12] MEDS: LEVOTHYROXINE SODIUM 50 MCG TABLET PO SCH (07:43)
[2021-10-12] MEDS: oxyCODONE/APAP (5/325 MG) 1 UDTAB TABLET PO PRN ×4 (07:44→21:50)
[2021-10-12 07:45] LABS: ALBUMIN 3.4 g/dL (3.4-5.0); BILIRUBIN,TOTAL 0.2 mg/dL (0.2-1.0); CALCIUM, SERUM 7.5 mg/dL (8.5-10.1); CREATININE 0.7 mg/dL (0.6-1.3); MAGNESIUM 1.9 mg/dL (1.8-2.4); PHOSPHORUS 3.2 mg/dL (2.5-4.9); POTASSIUM 3.8 mmol/L (3.5-5.1); TOTAL PROTEIN, SERUM 6.5 g/dL (6.4-8.2)
[2021-10-12 07:46] LABS: BASOPHILS % (AUTO) 0.6 % (0.0-2.0); EOSINOPHILS % (AUTO) 3.2 % (0.0-6.0); HEMATOCRIT 34 % (33-45); HEMOGLOBIN 11.1 g/dL (11.5-14.8); LYMPHOCYTES # (AUTO) 1.7 K/uL (0.8-4.8); LYMPHOCYTES % (AUTO) 32.5 % (20.0-44.0); MEAN CORPUSCULAR HGB CONC 33 g/dl (31.0-36.0); MEAN CORPUSCULAR VOLUME 85 fL (82-100); MONOCYTES # (AUTO) 0.5 K/uL (0.1-1.30); MONOCYTES % (AUTO) 8.9 % (2.0-12.0); NEUTROPHILS # (AUTO) 2.8 K/uL (1.8-8.9); NEUTROPHILS % (AUTO) 54.8 % (43.0-81.0); PLATELET COUNT (AUTO) 237 K/uL (150-450); RED BLOOD CELL COUNT(AUTO) 3.98 MIL/uL (4.0-5.2); WHITE BLOOD COUNT (AUTO) 5.1 K/uL (4.3-11.0)
--- NOTE | 2021-10-12 08:10 | NUR ---
RN NOTES ORTHOSTATIC B/P DONE: LYING - B/P 162/92, HR 74, SITTING - B/P 158/90, HR 74, STANDING - B/P 160/ 100, HR 74. DR. COLBERT MADE AWARE OF RESULTS.
[2021-10-12] MEDS: ENOXAPARIN SODIUM 80 MG/0.8 ML DISP.SYRIN SQ SCH (08:36)
[2021-10-12] MEDS: DULOXETINE HCL 30 MG CAPSULE.DR PO SCH (08:37)
[2021-10-12] MEDS: LACTULOSE 10 G/15 ML UDC (PYXIS) PO ONE ×2 (08:37→08:42)
[2021-10-12] MEDS: ASPIRIN 81 MG TAB.CHEW PO SCH (08:37)
[2021-10-12] MEDS: MELOXICAM 7.5 MG TABLET PO SCH (08:37)
[2021-10-12] MEDS: METOPROLOL TARTRATE 50 MG TABLET PO SCH ×3 (08:37→17:03)
[2021-10-12] MEDS: AMLODIPINE BESYLATE 5 MG TABLET PO SCH (08:38)
[2021-10-12] MEDS: LOSARTAN POTASSIUM 50 MG TABLET PO SCH (08:38)
[2021-10-12 08:44] VITALS: BP 130/57
--- NOTE | 2021-10-12 08:55 | NUR ---
WOUND CARE CONSULT: PT SEEN FOR ABDOMINAL "SCAB". PT NOTED TO HAVE BROWN DRY LESION TO UMBILICUS, PRESENT ON ADMISSION. NO TENDERNESS, DRAINAGE OR ERYTHEMA NOTED. DEFER TO PMD. CURRENT MALGORZATA SCORE IS 20. WILL SEE PRN.
[2021-10-12 12:13] VITALS: BP 141/68
[2021-10-12 16:03] VITALS: BP 126/66
[2021-10-12] MEDS: SIMVASTATIN 20 MG TABLET PO SCH (17:03)
--- NOTE | 2021-10-12 18:51 | NUR ---
CUT OFF SAW SET UP OPERATOR CLOSING NOTES PATIENT IN BED, AWAKE, A/O X4, NO SIGNS OF ACUTE DISTRESS NOTED. REMAINS ON O2 @ 2 LPM VIA N/C SATTING @100 %, NO SOB NOTED. NO EPISODES OF SYNCOPE. ASSISTED TO BSC NEEDED, TOLERATED WELL. WITH IV ACCESS ON LAC #20 G, LHAND #20 G, SALINE LOCKED. REMAINS ON RD MANAGER. MEDICATED FOR PAIN NEEDED. SAFETY MEASURES MAINTAINED. BED LOCKED AND IN LOWEST POSITION, SR UP X2, CALL LIGHT PLACED WITHIN EASY REACH. WILL ENDORSE TO NEXT SHIFT.
--- NOTE | 2021-10-12 19:30 | NUR ---
TELE/RN OPENING NOTE RECEIVED PATIENT RESTING IN BED. AWAKE, ALERT AND ORIENTED X 4. ABLE TO MAKE NEEDS KNOWN. DENIES PAIN AT THIS TIME. CONTINUES ON O2 2L VIA NC WITH NO S/SX OF RESPIRATORY DISTRESS NOTED. IV ACCESS TO LEFT AC #20G AND LEFT HAND #20G BOTH INTACT, PATENT AND SALINE LOCKED. CONTINUES ON IV ABX. CONTINUES ON TELE MONITOR WITH CURRENT READING SR. CALL LIGHT WITHIN REACH. ASPIRATION, FALL AND SAFETY PRECAUTIONS MAINTAINED. WILL CONTINUE TO MONITOR.
--- NOTE | 2021-10-12 19:40 | NUR ---
ORE DRESSING ENGINEER OPENING RECEIVED PATIENT IN BED WITH 2 FAMILY MEMBERS IN BED SIDE. A/OX4. NO S/S OF APPARENT DISTRESS ON ROOM AIR. DENIES PAIN AT THIS TIME. TELE MONITOR READING SR 83. R. HAND IV INTACT AND PATENT-- NO FLUIDS RUNNING AT THIS TIME. SAFETY IN PLACE. WILL CONTINUE WITH PLAN OF CARE FOR PATIENT.
[2021-10-12 20:00] VITALS: BP 143/76
[2021-10-12] MEDS: ZOLPIDEM TARTRATE 5 MG TABLET PO PRN (20:49)
[2021-10-12] MEDS: QUETIAPINE FUMARATE 25 MG TABLET PO SCH (21:31)
[2021-10-13] VITALS: BP 116/65
[2021-10-13] MEDS: METOPROLOL TARTRATE 50 MG TABLET PO SCH ×4 (00:23→17:25)
[2021-10-13 04:00] VITALS: BP 130/72
--- NOTE | 2021-10-13 06:30 | NUR ---
TELE/RN CLOSING NOTE PATIENT CURRENTLY RESTING IN BED. AWAKE, ALERT AND ORIENTED X 4. ABLE TO MAKE NEEDS KNOWN. DENIES PAIN AT THIS TIME. CONTINUES ON O2 2L VIA NC WITH NO S/SX OF RESPIRATORY DISTRESS NOTED. IV ACCESS TO LEFT AC #20G AND LEFT HAND #20G BOTH INTACT, PATENT AND SALINE LOCKED. CONTINUES ON IV ABX. CONTINUES ON TELE MONITOR WITH CURRENT READING SB HR 55. CALL LIGHT WITHIN REACH. ASPIRATION, FALL AND SAFETY PRECAUTIONS MAINTAINED. WILL ENDORSE PLAN OF CARE TO ONCOMING SHIFT.
[2021-10-13] MEDS: oxyCODONE/APAP (5/325 MG) 1 UDTAB TABLET PO PRN ×3 (06:45→17:28)
[2021-10-13] MEDS: LEVOTHYROXINE SODIUM 50 MCG TABLET PO SCH (07:55)
[2021-10-13] MEDS: PANTOPRAZOLE 40 MG TABLET.DR PO SCH (07:55)
[2021-10-13 08:00] VITALS: BP 126/60
--- NOTE | 2021-10-13 08:09 | NUR ---
RN Opening Note Patient received in bed AO x 4, able to responds all stimuli. Respiratory even and unlabored with oxygen at 2Ls. No distress observed. Skin is warm to touch, keep clean/dry, intact IV site. Kept elevated HOB for ensure airway/aspiration precaution and remain lower position of the bed for safety. call light within reach, will continue to monitor.
[2021-10-13] MEDS: ASPIRIN 81 MG TAB.CHEW PO SCH (08:34)
[2021-10-13] MEDS: DULOXETINE HCL 30 MG CAPSULE.DR PO SCH (08:34)
[2021-10-13] MEDS: MELOXICAM 7.5 MG TABLET PO SCH (08:34)
[2021-10-13] MEDS: LOSARTAN POTASSIUM 50 MG TABLET PO SCH (08:56)
[2021-10-13] MEDS: AMLODIPINE BESYLATE 5 MG TABLET PO SCH (08:56)
--- NOTE | 2021-10-13 08:56 | NUR ---
Patient HR is low, will hold bp meds at this time. bp -126/60, p-51.
[2021-10-13] MEDS ORDERED: IOHEXOL-300 100 ML VIAL IV ONE (11:33)
[2021-10-13] MEDS ORDERED: IV NS 0.9% 250 ML IV ONE (11:33)
[2021-10-13] MEDS ORDERED: FUROSEMIDE 40 MG/4 ML VIAL IV ONE (12:30)
[2021-10-13 16:00] VITALS: BP 124/68
[2021-10-13] MEDS: SIMVASTATIN 20 MG TABLET PO SCH (17:25)
--- NOTE | 2021-10-13 17:30 | NUR ---
Patient HR 55-60, held Metoprolol.
--- NOTE | 2021-10-13 18:36 | NUR ---
RN Closing Note Patient is resting in bed, no distress observed. Respiratory even and unlabored with oxygen at 2Ls. Skin is warm to touch, keep clean/dry. Kept elevated HOB for ensure airway and aspiration precaution, Also lower position of the bed for safety. Call light within reach, all needs met. will endorse material handler 1st shift.
--- NOTE | 2021-10-13 19:25 | NUR ---
PLATE GLASS GRINDER OPENING NOTES RECEIVED PATIENT LAYING AWAKE IN BED. A/O X4. PATIENT ON REGULAR AND UNLABORED BREATHING ON ROOM AIR, TOLERATED WELL. NO SIGNS OR SYMPTOMS OF DISTRESS NOTED AT THIS TIME. NO COMPLAINS OF PAIN OR DISCOMFORT AT THIS TIME. PATIENT ON TELE MONITOR READING SB WITH PVC @ 55 BPM. IV ACCESS LAC G #20 SL AND L HAND G #22 SL. IV ACCESSES PATENT AND INTACT. SAFETY PRECAUTIONS ENFORCED WITH BED LOCKED AND AT LOWEST POSITION. SIDERAILS UP X2. CALL LIGHT WITHIN REACH AT ALL TIMES. WILL CONTINUE TO MONITOR PATIENT.
[2021-10-13 20:00] VITALS: BP 121/59
[2021-10-13] MEDS: QUETIAPINE FUMARATE 25 MG TABLET PO SCH (21:01)
[2021-10-13] MEDS: ZOLPIDEM TARTRATE 5 MG TABLET PO PRN (21:01)
[2021-10-14] VITALS: BP 109/50
[2021-10-14] MEDS: METOPROLOL TARTRATE 50 MG TABLET PO SCH ×4 (00:23→17:31)
[2021-10-14 04:00] VITALS: BP 127/75
[2021-10-14] MEDS: oxyCODONE/APAP (5/325 MG) 1 UDTAB TABLET PO PRN ×3 (06:05→20:33)
[2021-10-14 06:39] LABS: EOSINOPHILS % (AUTO) 3.9 % (0.0-6.0); HEMATOCRIT 32 % (33-45); HEMOGLOBIN 10.7 g/dL (11.5-14.8); LYMPHOCYTES # (AUTO) 1.3 K/uL (0.8-4.8); LYMPHOCYTES % (AUTO) 27.6 % (20.0-44.0); MEAN CORPUSCULAR HGB CONC 33 g/dl (31.0-36.0); MEAN CORPUSCULAR VOLUME 85 fL (82-100); MONOCYTES # (AUTO) 0.4 K/uL (0.1-1.30); MONOCYTES % (AUTO) 9.2 % (2.0-12.0); NEUTROPHILS # (AUTO) 2.7 K/uL (1.8-8.9); NEUTROPHILS % (AUTO) 58.3 % (43.0-81.0); PLATELET COUNT (AUTO) 223 K/uL (150-450); RED BLOOD CELL COUNT(AUTO) 3.81 MIL/uL (4.0-5.2); WHITE BLOOD COUNT (AUTO) 4.6 K/uL (4.3-11.0)
[2021-10-14 07:27] LABS: ALBUMIN 3.3 g/dL (3.4-5.0); BILIRUBIN,TOTAL 0.2 mg/dL (0.2-1.0); CALCIUM, SERUM 7.9 mg/dL (8.5-10.1); CREATININE 0.6 mg/dL (0.6-1.3); MAGNESIUM 2.1 mg/dL (1.8-2.4); PHOSPHORUS 4.4 mg/dL (2.5-4.9); POTASSIUM 3.8 mmol/L (3.5-5.1); TOTAL PROTEIN, SERUM 6.4 g/dL (6.4-8.2)
--- NOTE | 2021-10-14 07:32 | NUR ---
BRUSHING OPERATOR CLOSING NOTES PATIENT STILL LAYING AWAKE IN BED. A/O X4. PATIENT ON REGULAR AND UNLABORED BREATHING ON ROOM AIR, TOLERATED WELL. NO SIGNS OR SYMPTOMS OF DISTRESS NOTED AT THIS TIME. NO COMPLAINS OF PAIN OR DISCOMFORT AT THIS TIME. PATIENT ON TELE MONITOR READING SR WITH PVC @ 62 BPM. IV ACCESS LAC G #20 SL AND L HAND G #22 SL. IV ACCESSES PATENT AND INTACT. SAFETY PRECAUTIONS ENFORCED WITH BED LOCKED AND AT LOWEST POSITION. SIDERAILS UP X2. CALL LIGHT WITHIN REACH AT ALL TIMES. WILL ENDORSE CONTINUITY OF CARE TO DAY SHIFT NURSE.
--- NOTE | 2021-10-14 07:45 | NUR ---
FLAT KNITTER HELPER OPENING NOTE Patient in bed, awake. A/O x 4, able to make needs known. On O2 at 2 LPM via NC, breathing evenly and unlabored. No SOB or s/s of distress noted. IV access on LAC #20G SL and Left hand #22 SL, both intact and patent. On tele monitoring showing SB, HR on the 50's. Safety measures in place: bed in low, locked position; siderails up x 2; sofiya light within reach. Will continue to monitor.
[2021-10-14 08:00] VITALS: BP 136/64
[2021-10-14] MEDS: DULOXETINE HCL 30 MG CAPSULE.DR PO SCH (08:44)
[2021-10-14] MEDS: LEVOTHYROXINE SODIUM 50 MCG TABLET PO SCH (08:44)
[2021-10-14] MEDS: PANTOPRAZOLE 40 MG TABLET.DR PO SCH (08:45)
[2021-10-14] MEDS: MELOXICAM 7.5 MG TABLET PO SCH (08:45)
[2021-10-14] MEDS: AMLODIPINE BESYLATE 5 MG TABLET PO SCH (08:46)
[2021-10-14] MEDS: LOSARTAN POTASSIUM 50 MG TABLET PO SCH (08:46)
[2021-10-14] MEDS: ASPIRIN 81 MG TAB.CHEW PO SCH (08:46)
[2021-10-14] MEDS ORDERED: IOHEXOL-350 100 ML VIAL IV ONE ×2 (09:50→10:58)
[2021-10-14] MEDS ORDERED: IV NS 0.9% 250 ML IV ONE (09:51)
[2021-10-14 12:00] VITALS: BP 113/53
[2021-10-14 16:00] VITALS: BP 134/53
[2021-10-14] MEDS: SIMVASTATIN 20 MG TABLET PO SCH (17:31)
--- NOTE | 2021-10-14 19:29 | NUR ---
TEMPERING KILN TENDER CLOSING NOTE Patient in bed, awake. A/O x 4, able to make needs known. On O2 at 2 LPM via NC, breathing evenly and unlabored. No SOB or s/s of distress noted. IV access on LAC #20G SL and Left hand #22 SL, both intact and patent. On tele monitoring showing SB, HR on the 50's. Patient ambulates to the bathroom using a walker, gait steady with the walker. All needs attended to. Due meds given. Safety measures maintained: bed in low, locked position; siderails up x 2; sofiya light within reach. Will endorse to fitter helper nurse for ADONAY.
--- NOTE | 2021-10-14 19:35 | NUR ---
MARBLE FINISHER OPENING NOTES RECEIVED PATIENT LAYING AWAKE IN BED. A/O X4. PATIENT ON REGULAR AND UNLABORED BREATHING ON 2 LPM VIA NASAL CANULA, TOLERATED WELL. NO SIGNS OR SYMPTOMS OF DISTRESS NOTED AT THIS TIME. NO COMPLAINS OF PAIN OR DISCOMFORT AT THIS TIME. PATIENT ON TELE MONITOR READING SB WITH @ 52 BPM. IV ACCESS LAC G #20 SL AND L HAND G #22 SL. IV ACCESSES PATENT AND INTACT. SAFETY PRECAUTIONS ENFORCED WITH BED LOCKED AND AT LOWEST POSITION. SIDERAILS UP X2. CALL LIGHT WITHIN REACH AT ALL TIMES. WILL CONTINUE TO MONITOR PATIENT.
[2021-10-14 20:00] VITALS: BP 137/66
[2021-10-14] MEDS: ZOLPIDEM TARTRATE 5 MG TABLET PO PRN (20:33)
[2021-10-14] MEDS ORDERED: ERGOCALCIFEROL (VITAMIN D 2) 50,000 UNIT CAPSULE PO SCH (21:00)
[2021-10-14] MEDS: QUETIAPINE FUMARATE 25 MG TABLET PO SCH (21:06)
[2021-10-15] VITALS (7 sets, daily range): BP systolic 120–159; BP diastolic 58–76
[2021-10-15] MEDS: METOPROLOL TARTRATE 50 MG TABLET PO SCH ×4 (01:31→17:07)
[2021-10-15] MEDS: oxyCODONE/APAP (5/325 MG) 1 UDTAB TABLET PO PRN ×3 (05:42→17:39)
--- NOTE | 2021-10-15 06:47 | NUR ---
RETREAD OPERATOR CLOSING NOTES PATIENT STILL LAYING AWAKE IN BED. A/O X4. PATIENT ON REGULAR AND UNLABORED BREATHING ON 2 LPM VIA NASAL CANULA, TOLERATED WELL. NO SIGNS OR SYMPTOMS OF DISTRESS NOTED AT THIS TIME. NO COMPLAINS OF PAIN OR DISCOMFORT AT THIS TIME. PATIENT ON TELE MONITOR READING SB WITH @ 57 BPM. IV ACCESS LAC G #20 SL AND L HAND G #22 SL. IV ACCESSES PATENT AND INTACT. SAFETY PRECAUTIONS ENFORCED WITH BED LOCKED AND AT LOWEST POSITION. SIDERAILS UP X2. CALL LIGHT WITHIN REACH AT ALL TIMES. WILL ENDORSE CONTINUITY OF CARE TO DAY SHIFT NURSE.
[2021-10-15 07:22] LABS: BASOPHILS % (AUTO) 0.7 % (0.0-2.0); EOSINOPHILS % (AUTO) 5.6 % (0.0-6.0); HEMATOCRIT 37 % (33-45); HEMOGLOBIN 12.2 g/dL (11.5-14.8); LYMPHOCYTES # (AUTO) 1.9 K/uL (0.8-4.8); LYMPHOCYTES % (AUTO) 35.2 % (20.0-44.0); MEAN CORPUSCULAR HGB CONC 33 g/dl (31.0-36.0); MEAN CORPUSCULAR VOLUME 85 fL (82-100); MONOCYTES # (AUTO) 0.5 K/uL (0.1-1.30); MONOCYTES % (AUTO) 8.4 % (2.0-12.0); NEUTROPHILS # (AUTO) 2.8 K/uL (1.8-8.9); NEUTROPHILS % (AUTO) 50.1 % (43.0-81.0); PLATELET COUNT (AUTO) 270 K/uL (150-450); RED BLOOD CELL COUNT(AUTO) 4.36 MIL/uL (4.0-5.2); WHITE BLOOD COUNT (AUTO) 5.5 K/uL (4.3-11.0)
--- NOTE | 2021-10-15 07:38 | NUR ---
DEPUTY SHERIFF/INVESTIGATOR OPENING NOTES RECEIVED PATIENT LAYING AWAKE IN BED. PATIENT IS A/O X4. PATIENT ON REGULAR AND UNLABORED BREATHING ON 2 LPM VIA NASAL CANULA, TOLERATED WELL. NO SIGNS OR SYMPTOMS OF DISTRESS NOTED AT THIS TIME. NO COMPLAINS OF PAIN OR DISCOMFORT AT THIS TIME. PATIENT ON TELE MONITOR. IV ACCESS LAC G #20 SL AND L HAND G #22 SL. IV ACCESSES PATENT AND INTACT. SAFETY PRECAUTIONS ENFORCED WITH BED LOCKED AND AT LOWEST POSITION. SIDERAILS UP X2. CALL LIGHT WITHIN REACH AT ALL TIMES. WILL CONTINUE TO MONITOR
[2021-10-15] MEDS: LEVOTHYROXINE SODIUM 50 MCG TABLET PO SCH (08:12)
[2021-10-15] MEDS: ASPIRIN 81 MG TAB.CHEW PO SCH (08:12)
[2021-10-15] MEDS: DULOXETINE HCL 30 MG CAPSULE.DR PO SCH (08:12)
[2021-10-15] MEDS: MELOXICAM 7.5 MG TABLET PO SCH (08:12)
[2021-10-15] MEDS: PANTOPRAZOLE 40 MG TABLET.DR PO SCH (08:12)
[2021-10-15] MEDS: AMLODIPINE BESYLATE 5 MG TABLET PO SCH (08:13)
[2021-10-15] MEDS: LOSARTAN POTASSIUM 50 MG TABLET PO SCH (08:13)
[2021-10-15 08:36] LABS: ALBUMIN 3.8 g/dL (3.4-5.0); BILIRUBIN,TOTAL 0.2 mg/dL (0.2-1.0); CALCIUM, SERUM 8.5 mg/dL (8.5-10.1); CREATININE 0.7 mg/dL (0.6-1.3); MAGNESIUM 2.5 mg/dL (1.8-2.4); PHOSPHORUS 5.2 mg/dL (2.5-4.9); POTASSIUM 3.6 mmol/L (3.5-5.1)
[2021-10-15] MEDS: VALSARTAN 80 MG TABLET PO SCH (10:25)
--- NOTE | 2021-10-15 11:00 | NUR ---
RN NOTE ORDERED TO TITRATE O2 TO ROOM AND AMBULATE PATIENT TO SEE TOLERATION. PATIENT REMAINED >96% DURING WEANING TRIALS, PATIENT LEFT OFF O2 AT THIS TIME. WILL CONTINUE TO MONITOR
[2021-10-15] MEDS: SIMVASTATIN 20 MG TABLET PO SCH (17:06)
--- NOTE | 2021-10-15 18:33 | NUR ---
MACHINE GRINDER CLOSING NOTES PATIENT LAYING AWAKE IN BED. PATIENT IS A/O X4. PATIENT ON REGULAR AND UNLABORED BREATHING ON ROOM AIR, TOLERATED WELL. NO SIGNS OR SYMPTOMS OF DISTRESS NOTED AT THIS TIME. NO COMPLAINS OF PAIN OR DISCOMFORT AT THIS TIME. PATIENT ON TELE MONITOR. IV ACCESS LAC G #20 SL AND L HAND G #22 SL. IV ACCESSES PATENT AND INTACT. ALL MEDICATIONS GIVEN ORDERED SAFETY PRECAUTIONS ENFORCED WITH BED LOCKED AND AT LOWEST POSITION. SIDERAILS UP X2. CALL LIGHT WITHIN REACH AT ALL TIMES. WILL ENDORSE TO ONCOMING SHIFT
--- NOTE | 2021-10-15 19:39 | NUR ---
RN OPENING NOTES RECEIVED PT IN BED, AWAKE, SITTING UP AT BEDSIDE. AOx4, ABLE TO MAKE NEEDS KNOWN. ON RA AND TOLERATING WELL. NO SOB NOTED. NO S/SX OF RESPIRATORY DISTRESS NOTED. TELE MONITOR DETECTS SINUS RHYTHM WITH RATE IN 60s. IV ACCESS IN LAC #20 AND L HAND #22G. IV IS INTACT, PATENT, AND FLUSHING WELL. SAFETY PRECAUTIONS IN PLACE: BED IN LOWEST, LOCKED POSITION, SIDERAILS UPx2, AND BRAKES ON. TABLE AND CALL LIGHT WITHIN REACH. WILL CONTINUE TO MONITOR.
[2021-10-15] MEDS: QUETIAPINE FUMARATE 25 MG TABLET PO SCH (21:10)
[2021-10-16] VITALS: BP 161/66
[2021-10-16] MEDS: METOPROLOL TARTRATE 50 MG TABLET PO SCH ×4 (01:00→17:09)
[2021-10-16] MEDS: oxyCODONE/APAP (5/325 MG) 1 UDTAB TABLET PO PRN ×3 (02:58→15:08)
--- NOTE | 2021-10-16 02:58 | NUR ---
ADMINISTERED PERCOCET FOR PAIN PER MD ORDER. VS WNL. WILL CONTINUE TO MONITOR.
[2021-10-16 04:00] VITALS: BP 133/67
--- NOTE | 2021-10-16 06:57 | NUR ---
RN CLOSING NOTES PT IN BED, ASLEEP, AWAKENS TO VERBAL STIMULI. AOx3-4 WITH PERIODS OF CONFUSION BUT ABLE TO MAKE NEEDS KNOWN. ON RA AND TOLERATING WELL. NO SOB NOTED. NO S/SX OF RESPIRATORY DISTRESS NOTED. TELE MONITOR DETECTS SINUS RHYTHM WITH PVCs AND PACs AND RATE IN 60s. IV ACCESS IN LAC #20 AND L HAND #22G. IV IS INTACT, PATENT, AND FLUSHING WELL. ALL NEEDS MET. PT KEPT CLEAN AND DRY. TREATED PAIN DURING SHIFT. ALL ORDERS CARRIED OUT. SAFETY PRECAUTIONS IN PLACE: BED IN LOWEST, LOCKED POSITION, SIDERAILS UPx2, AND BRAKES ON. TABLE AND CALL LIGHT WITHIN REACH. WILL ENDORSE TO ONCOMING SHIFT FOR ADONAY.
[2021-10-16 08:00] VITALS: BP 136/74
--- NOTE | 2021-10-16 08:56 | NUR ---
given percocet for shoulder and back pain
[2021-10-16] MEDS ORDERED: AMLODIPINE BESYLATE 5 MG TABLET PO SCH (09:00)
[2021-10-16] MEDS: MELOXICAM 7.5 MG TABLET PO SCH (09:06)
[2021-10-16] MEDS: VALSARTAN 80 MG TABLET PO SCH (09:07)
[2021-10-16] MEDS: DULOXETINE HCL 30 MG CAPSULE.DR PO SCH (09:07)
[2021-10-16] MEDS: LEVOTHYROXINE SODIUM 50 MCG TABLET PO SCH (09:08)
[2021-10-16] MEDS: PANTOPRAZOLE 40 MG TABLET.DR PO SCH (09:08)
[2021-10-16] MEDS: ASPIRIN 81 MG TAB.CHEW PO SCH (09:10)
[2021-10-16 16:00] VITALS: BP 152/87
[2021-10-16] MEDS ORDERED: METO50TA16 PO (16:54)
[2021-10-16] MEDS ORDERED: AMLO-212 PO (16:54)
[2021-10-16 17:09] VITALS: BP 152/87
--- NOTE | 2021-10-16 17:35 | NUR ---
MEDICATED AGAIN FOR PAIN WITH PERCOCET.TELE MONITOR REMOVED,BANDAGES TO IV SITES.GIVEN DC INSTRUCTIONS.ALL PAPERS SIGNED.BELONGING SHEET SIGNED.REVIEW OF DC MEDS.TAKEN TO LOBBY FOR DISCH.VIA W/C ACCOMPANIED BY AUBRIE AND CRISTI.
== END 2021-10-16 17:59 | disposition home or self-care (01) | DRG 280 ==
LOC: ER 18:34 → TELE 21:20 → MED 10-16 09:56
PROVIDERS: ADMIT Nurse Practitioner Acute Care; ATTEND Nurse Practitioner Acute Care
DX: I13.0 Hypertensive heart and chronic kidney disease with heart failure and stage 1 through stage 4 chronic kidney disease, or unspecified chronic kidney disease (principal); J15.9 Unspecified bacterial pneumonia; I21.A1 Myocardial infarction type 2; I50.33 Acute on chronic diastolic (congestive) heart failure; N17.9 Acute kidney failure, unspecified; D68.59 Other primary thrombophilia; G90.8 Other disorders of autonomic nervous system; E03.9 Hypothyroidism, unspecified; E78.5 Hyperlipidemia, unspecified; M81.0 Age-related osteoporosis without current pathological fracture; I25.10 Atherosclerotic heart disease of native coronary artery without angina pectoris; E11.22 Type 2 diabetes mellitus with diabetic chronic kidney disease; Z20.822 Contact with and (suspected) exposure to COVID-19; F41.9 Anxiety disorder, unspecified; Z98.890 Other specified postprocedural states; Z79.82 Long term (current) use of aspirin; Z79.899 Other long term (current) drug therapy; K21.9 Gastro-esophageal reflux disease without esophagitis; N18.9 Chronic kidney disease, unspecified; F32.A Depression, unspecified; D64.9 Anemia, unspecified; I48.0 Paroxysmal atrial fibrillation; I27.20 Pulmonary hypertension, unspecified; I65.02 Occlusion and stenosis of left vertebral artery; R06.89 Other abnormalities of breathing
CPT/HCPCS: 36415; 70491-TC; 70496-TC; 70498-TC; 71045-TC; 75574; 80048-TC; 80053-TC; 80061-TC; 80076-TC; 83735-TC; 83880; 84100-TC; 84484-TC; 85025-TC; 85378-TC; 85610-TC; 85730-TC; 87081-TC; 93307-TC; 93880-TC; 93970-TC; 97116-TC; 97530-TC; C9803; G0378; J0696; J1650; J1940; J2060; J3490; J7030; J7040; J7050; J7060; Q9967

== ENCOUNTER → 2021-10-18 | Outpatient (CLI) | payer MEDICARE, OTHER ==
[~2021-10-18] MED LIST changes: +METO50TA16 PO
== END | disposition home or self-care (01) ==
LOC: MSC 10:30
PROVIDERS: ATTEND Internal Medicine
DX: N39.0 Urinary tract infection, site not specified (principal); I10 Essential (primary) hypertension; Z76.0 Encounter for issue of repeat prescription; K21.9 Gastro-esophageal reflux disease without esophagitis; K22.70 Barrett's esophagus without dysplasia; M54.10 Radiculopathy, site unspecified; M43.26 Fusion of spine, lumbar region; M81.0 Age-related osteoporosis without current pathological fracture; G47.00 Insomnia, unspecified; R06.00 Dyspnea, unspecified; J44.9 Chronic obstructive pulmonary disease, unspecified; G47.33 Obstructive sleep apnea (adult) (pediatric); M19.90 Unspecified osteoarthritis, unspecified site

== ENCOUNTER 2021-11-05 09:03 | Emergency (ER) | payer MEDICARE, OTHER ==
[~2021-11-05] VITALS: Ht 154.9 cm; Wt 68.9 kg
--- NOTE | 2021-11-05 09:05 | NUR ---
BIBA THIS 81 YO FEMALE PATIENT WITH CC OF SOB. PATIENT IS ALERT, ORIENTED X4. VITALS CHECKED. PLACED COMFORTABLY ON BED
--- NOTE | 2021-11-05 09:15 | NUR ---
CXR DONE AT BEDSIDE
--- NOTE | 2021-11-05 09:20 | NUR ---
IV CANNULA G20 INSERTED LEFT HAND. BLOOD DRAWN AND GIVEN TO BOOM CONVEYOR OPERATOR
--- NOTE | 2021-11-05 09:30 | NUR ---
URINE SPECIMEN GIVEN TO WELFARE SERVICE AIDE
--- NOTE | 2021-11-05 09:30 | NUR ---
COVID SWAB DONE
[2021-11-05 09:51] LABS: BASOPHILS % (AUTO) 0.7 % (0.0-2.0); HEMATOCRIT 35 % (33-45); HEMOGLOBIN 11.5 g/dL (11.5-14.8); LYMPHOCYTES # (AUTO) 1.4 K/uL (0.8-4.8); LYMPHOCYTES % (AUTO) 27.9 % (20.0-44.0); MEAN CORPUSCULAR HGB CONC 33 g/dl (31.0-36.0); MEAN CORPUSCULAR VOLUME 86 fL (82-100); MONOCYTES # (AUTO) 0.3 K/uL (0.1-1.30); MONOCYTES % (AUTO) 5.7 % (2.0-12.0); NEUTROPHILS # (AUTO) 3.1 K/uL (1.8-8.9); NEUTROPHILS % (AUTO) 61.7 % (43.0-81.0); PLATELET COUNT (AUTO) 152 K/uL (150-450); RED BLOOD CELL COUNT(AUTO) 4.08 MIL/uL (4.0-5.2); WHITE BLOOD COUNT (AUTO) 5.1 K/uL (4.3-11.0)
[2021-11-05] MEDS ORDERED: METO25TA4 PO (09:51)
[2021-11-05] MEDS ORDERED: OXYC1TAB12 PO (09:51)
[2021-11-05] MEDS ORDERED: AMIT75TA2 PO (09:51)
[2021-11-05] MEDS ORDERED: ALEN70TA80 PO (09:55)
[2021-11-05 10:04] LABS: CALCIUM, SERUM 7.7 mg/dL (8.5-10.1); CARBON DIOXIDE 25 mmol/L (21-32); CHLORIDE 106 mmol/L (98-107); CREATININE 0.6 mg/dL (0.6-1.3); GLUCOSE 97 mg/dL (74-106); POTASSIUM 4.3 mmol/L (3.5-5.1); SODIUM SERUM 138 mmol/L (136-145); UREA NITROGEN, BLOOD 15 mg/dL (7-18)
[2021-11-05 10:17] LABS: ALANINE AMINOTRANSFERASE 40 U/L (12-78); ALBUMIN 3.6 g/dL (3.4-5.0); ALKALINE PHOSPHATASE 89 U/L (46-116); ASPARTATE AMINOTRANSFERASE 36 U/L (15-37); BILIRUBIN,DIRECT 0.1 mg/dL (0.0-0.2); BILIRUBIN,TOTAL 0.3 mg/dL (0.2-1.0); TOTAL PROTEIN, SERUM 6.8 g/dL (6.4-8.2)
--- NOTE | 2021-11-05 10:40 | NUR ---
RECEIVED CALL FROM MATTHEW HENSON, PT [facility]ACTIC 2.O DR ANDERSON MADE AWARE
--- NOTE | 2021-11-05 11:11 | NUR ---
Patient discharged to home in stable condition. Written and verbal after care instructions given. Patient verbalizes understanding of instruction.
[2021-11-05 11:20] VITALS: BP 134/63
== END 2021-11-05 11:54 | disposition home or self-care (01) ==
LOC: ER 09:08
DX: R06.02 Shortness of breath (principal); Z20.822 Contact with and (suspected) exposure to COVID-19; I10 Essential (primary) hypertension; Z79.899 Other long term (current) drug therapy
CPT/HCPCS: 36415; 71045-TC; 80048-TC; 80076-TC; 83605-TC; 83880; 84484-TC; 85025-TC; 87040-TC; C9803

== ENCOUNTER 2022-03-03 11:12 | Inpatient (IN) | payer MEDICARE, OTHER ==
[~2022-03-03] VITALS: Ht 154.9 cm; Wt 71.7 kg
[~2022-03-03 11:12] MED LIST changes: +ALEN70TA80 PO; +AMIT75TA2 PO; -AMLO-212 PO; -ASPI-1169 PO; -DULO30CA52 PO; -MELO-107 PO; +METO25TA4 PO; -METO50TA16 PO; +OXYC1TAB12 PO; -QUET25TA PO
--- NOTE | 2022-03-03 11:44 | NUR ---
[email or web address] home, Sob on exertion and "weight gain x 1 week". PT AAOX4, DENIES CP, DIZZINESS, N/V AT THIS TIME. PLACED ON VAT HOUSE SUPERVISOR, SR. PLACED ON 2L OF O2, SAT 96%. WILL CONT TO MONITOR. AWAITING EVAL BY NUNU
--- NOTE | 2022-03-03 11:47 | NUR ---
DR. SIMTH AT FOR EVAL.
[2022-03-03 12:05] LABS: BASOPHILS % (AUTO) 1.1 % (0.0-2.0); EOSINOPHILS % (AUTO) 3.5 % (0.0-6.0); HEMATOCRIT 28 % (33-45); HEMOGLOBIN 9.5 g/dL (11.5-14.8); LYMPHOCYTES # (AUTO) 1.7 K/uL (0.8-4.8); MEAN CORPUSCULAR HGB CONC 34 g/dl (31.0-36.0); MEAN CORPUSCULAR VOLUME 84 fL (82-100); MONOCYTES # (AUTO) 0.4 K/uL (0.1-1.30); MONOCYTES % (AUTO) 9.1 % (2.0-12.0); NEUTROPHILS # (AUTO) 2.1 K/uL (1.8-8.9); NEUTROPHILS % (AUTO) 48.3 % (43.0-81.0); PLATELET COUNT (AUTO) 169 K/uL (150-450); RED BLOOD CELL COUNT(AUTO) 3.39 MIL/uL (4.0-5.2); WHITE BLOOD COUNT (AUTO) 4.4 K/uL (4.3-11.0)
[2022-03-03 12:20] LABS: CALCIUM, SERUM 9.4 mg/dL (8.5-10.1); CARBON DIOXIDE 30 mmol/L (21-32); CHLORIDE 102 mmol/L (98-107); CREATININE 0.9 mg/dL (0.6-1.3); GLUCOSE 102 mg/dL (74-106); POTASSIUM 3.8 mmol/L (3.5-5.1); SODIUM SERUM 138 mmol/L (136-145); UREA NITROGEN, BLOOD 43 mg/dL (7-18)
[2022-03-03 12:32] LABS: ALANINE AMINOTRANSFERASE 13 U/L (12-78); ALBUMIN 3.4 g/dL (3.4-5.0); ALKALINE PHOSPHATASE 60 U/L (46-116); ASPARTATE AMINOTRANSFERASE 13 U/L (15-37); BILIRUBIN,DIRECT 0.1 mg/dL (0.0-0.2); BILIRUBIN,TOTAL 0.2 mg/dL (0.2-1.0); TOTAL PROTEIN, SERUM 6.3 g/dL (6.4-8.2)
[2022-03-03] MEDS ORDERED: CHOL100043 PO (13:10)
[2022-03-03] MEDS ORDERED: DOXE10CA2 PO (13:10)
[2022-03-03] MEDS ORDERED: DULO30CA52 PO (13:10)
[2022-03-03] MEDS ORDERED: QUET25TA PO (13:10)
[2022-03-03] MEDS ORDERED: HYDR25TA4 PO (13:10)
[2022-03-03] MEDS ORDERED: MELO-107 PO (13:11)
--- NOTE | 2022-03-03 13:45 | NUR ---
PT SITTING UP, ON HER CELLPHONE. DENIES CP, SOB, DIZZINESS, N/V AT THIS TIME. WILL CONT TO MONITOR.
[2022-03-03] MEDS ORDERED: BUMETANIDE INJ 8 MG in IV NS 0.9% 48 ML IV ONE (14:00)
--- NOTE | 2022-03-03 14:20 | NUR ---
TELE BED REQUESTED.
--- NOTE | 2022-03-03 15:29 | NUR ---
GOT BED. 113-2. NURSE NOTIFIED, ADMITTING DEPT NOTIFIED.
[2022-03-03] MEDS ORDERED: Z GUARD REMEDY 4 OZ OINT TP PRN (15:30)
[2022-03-03] MEDS ORDERED: ACETAMINOPHEN 325 MG TABLET PO PRN (15:30)
[2022-03-03] MEDS ORDERED: MAG HYDROX/AL HYDROX/SIMETH 30 ML UDC PO PRN (15:30)
[2022-03-03] MEDS ORDERED: ONDANSETRON HCL/PF 4 MG/2 ML VIAL IVP PRN (15:30)
[2022-03-03] MEDS ORDERED: FUROSEMIDE 40 MG/4 ML VIAL IV ONE (15:30)
[2022-03-03] MEDS ORDERED: MAGNESIUM HYDROXIDE 30 ML UDC PO PRN (15:30)
[2022-03-03] MEDS ORDERED: FUROSEMIDE 40 MG/4 ML VIAL ONE (16:27)
--- NOTE | 2022-03-03 16:43 | NUR ---
REPORT GIVEN TO CHANELLE DASH FOR CONT OF CARE.
[2022-03-03 16:56] VITALS: BP 142/51
--- NOTE | 2022-03-03 17:00 | NUR ---
TENTER FEEDER NOTE RECEIVED PATIENT FROM ER. AAOR X 3 WITH DIAGNOSIS OF CHF UNDER DR. MCINTYRE PLACED ON PORT PURSER SB WITH HR OF 59. VITAL SIGNS DONE, BODY CHECK DONE PATIENT ON RA NO SOB NOTED AT THIS TIME. ALL NEEDS ATTENDED. SALINE LOCK ON LEFT HAND, INTACT. CONTINUE WITH BUMEX DRIP FROM ER. CALL LIGHT WITHIN REACH. SAFETY MEASURES IMPLEMENTED. AMBULATORY TO BEDSIDE COMMODE. WILL OCNTINUE TO MONITOR.
[2022-03-03] MEDS: oxyCODONE/APAP (5/325 MG) 1 UDTAB TABLET PO PRN (17:37)
[2022-03-03] MEDS: ENOXAPARIN SODIUM 30 MG/0.3 ML DISP.SYRIN SQ SCH (17:41)
[2022-03-03] MEDS ORDERED: QUETIAPINE FUMARATE 25 MG TABLET PO SCH (18:00)
[2022-03-03] MEDS ORDERED: AMITRIPTYLINE HCL 25 MG TABLET PO SCH (18:00)
[2022-03-03] MEDS ORDERED: SIMVASTATIN 20 MG TABLET PO SCH (18:00)
--- NOTE | 2022-03-03 18:52 | NUR ---
telephone sales agent note all needs attended cont on Bumex drip as ordered ,not in distress ,will monitor
[2022-03-03 20:00] VITALS: BP 131/69
--- NOTE | 2022-03-03 22:13 | NUR ---
press operator helper Opening Note Pt received in bed, awake, A&O x4, calm, cooperative. Pt on RA with O2sat of 93%; applied NC at 2L; no s/s of resp distress, no SOB or cough, non-labored and equal breathing. Pt attached to external monitor, SB with current HR of 51. IV access on left hand 20G, intact and patent, flushes easily with no resistance. Had bumetanide from ER that was running at 10 ml/hr. Bed in lowest position, call light within reach, side rails up x2. Will continue to monitor throughout the night.
--- NOTE | 2022-03-03 23:49 | NUR ---
RN Note Pt requests for sleeping medication. Notified Dr. Cedrick Erickson, ordered Ambien 10 mg PO QHS. Order obtained and carried out.
[2022-03-04] VITALS: BP 101/62
[2022-03-04] MEDS ORDERED: ZOLPIDEM TARTRATE 10 MG TABLET PO PRN
[2022-03-04 04:00] VITALS: BP 111/71
[2022-03-04 06:48] LABS: ALANINE AMINOTRANSFERASE 12 U/L (12-78); ALBUMIN 3.9 g/dL (3.4-5.0); ALKALINE PHOSPHATASE 55 U/L (46-116); ASPARTATE AMINOTRANSFERASE 11 U/L (15-37); BILIRUBIN,TOTAL 0.3 mg/dL (0.2-1.0); CALCIUM, SERUM 9.6 mg/dL (8.5-10.1); CARBON DIOXIDE 38 mmol/L (21-32); CHLORIDE 97 mmol/L (98-107); CREATININE 1.1 mg/dL (0.6-1.3); GLUCOSE 96 mg/dL (74-106); MAGNESIUM 1.7 mg/dL (1.8-2.4); PHOSPHORUS 6.2 mg/dL (2.5-4.9); POTASSIUM 2.9 mmol/L (3.5-5.1); SODIUM SERUM 141 mmol/L (136-145); TOTAL PROTEIN, SERUM 7.1 g/dL (6.4-8.2); UREA NITROGEN, BLOOD 42 mg/dL (7-18)
--- NOTE | 2022-03-04 06:56 | NUR ---
METHODS EXAMINER CLOSING NOTE PT REMAINS IN BED, AWAKE, A&O X4, CALM, COOPERATIVE. SLEPT WELL THROUGHOUT THE NIGHT. PT ON 2L NC WITH O2SAT RANGING FROM 93%-96%; NO S/S OF RESP DISTRESS, NO SOB OR COUGH, NON-LABORED AND EQUAL BREATHING. ATTACHED TO EXTERNAL MONITOR SB-SR WITH HR RANGING FROM 51-61. LEFT HAND 20G INTACT AND PATENT, FLUSHES EASILY WITH NO RESISTANCE;CURRENTLY HAS NO FLUIDS/MEDS RUNNING THROUGH IT. WILL ENDORSE TO DAYSHIFT NURSE TO CONTINUE CARE.
[2022-03-04 07:11] LABS: BASOPHILS % (AUTO) 0.8 % (0.0-2.0); EOSINOPHILS % (AUTO) 2.7 % (0.0-6.0); HEMATOCRIT 31 % (33-45); HEMOGLOBIN 10.6 g/dL (11.5-14.8); LYMPHOCYTES # (AUTO) 1.6 K/uL (0.8-4.8); LYMPHOCYTES % (AUTO) 32.3 % (20.0-44.0); MEAN CORPUSCULAR HGB CONC 34 g/dl (31.0-36.0); MEAN CORPUSCULAR VOLUME 83 fL (82-100); MONOCYTES # (AUTO) 0.4 K/uL (0.1-1.30); MONOCYTES % (AUTO) 8.8 % (2.0-12.0); NEUTROPHILS # (AUTO) 2.7 K/uL (1.8-8.9); NEUTROPHILS % (AUTO) 55.4 % (43.0-81.0); PLATELET COUNT (AUTO) 170 K/uL (150-450); RED BLOOD CELL COUNT(AUTO) 3.76 MIL/uL (4.0-5.2); WHITE BLOOD COUNT (AUTO) 4.9 K/uL (4.3-11.0)
[2022-03-04] MEDS ORDERED: LEVOTHYROXINE SODIUM 50 MCG TABLET PO SCH (07:30)
[2022-03-04] MEDS ORDERED: PANTOPRAZOLE 40 MG TABLET.DR PO SCH (07:30)
--- NOTE | 2022-03-04 07:40 | NUR ---
WELDER PRODUCTION LINE GAS OPENING NOTE PT IN BED, ASLEEP. PT ON 2L NC WITH O2SAT AT 96%; NO S/S OF RESP DISTRESS, NON-LABORED AND EQUAL BREATHING. ATTACHED TO EXTERNAL MONITOR SB-SR WITH HR RANGING FROM 51-61. LEFT HAND 20G INTACT AND PATENT. WILL CONTINUE TO MONITOR AND ATTEND TO PT NEEDS.
[2022-03-04 08:00] VITALS: BP 114/50
[2022-03-04] MEDS ORDERED: POTASSIUM CHLORIDE 20 MEQ TAB.PRT.SR PO ONE (08:00)
[2022-03-04] MEDS: ENOXAPARIN SODIUM 30 MG/0.3 ML DISP.SYRIN SQ SCH (08:43)
[2022-03-04] MEDS: Magnesium 1GM/D5W 100ML PREMIX 100 ML IV SCH ×2 (08:46→10:05)
[2022-03-04] MEDS ORDERED: METOPROLOL SUCCINATE 25 MG TAB.SR.24H PO SCH (09:00)
[2022-03-04] MEDS ORDERED: DULOXETINE HCL 30 MG CAPSULE.DR PO SCH (09:00)
[2022-03-04] MEDS ORDERED: MELOXICAM 7.5 MG TABLET PO PRN (09:00)
[2022-03-04] MEDS ORDERED: LOSARTAN POTASSIUM 50 MG TABLET PO SCH (09:00)
[2022-03-04] MEDS ORDERED: DOXEPIN HCL 10 MG CAPSULE PO SCH (09:00)
[2022-03-04] MEDS: oxyCODONE/APAP (5/325 MG) 1 UDTAB TABLET PO PRN (11:41)
[2022-03-04 12:00] VITALS: BP 138/62
--- NOTE | 2022-03-04 15:36 | NUR ---
REVIEWED DISCHARGE INSTRUCTION WITH PT. PT VERBALIZED UNDERSTANDING. PT DISCHARGED VIA WHEELCHAIR WITH PRESCRIPTIONS, INSTRUCTIONS AND BELONGINGS. IV AND TELEMETRY PREVIOUSLY DISCONTINUED. PT LEFT HOSPITAL WITH RELATIVE TO HOME SELF CARE. VS: T 98.6 P 65, RR 18, O2 95, BP 116/60.
== END 2022-03-04 15:23 | disposition home or self-care (01) | DRG 291 ==
LOC: ER 11:19 → TELE1 15:35
PROVIDERS: ADMIT Internal Medicine; ATTEND Internal Medicine
DX: I11.0 Hypertensive heart disease with heart failure (principal); I50.33 Acute on chronic diastolic (congestive) heart failure; E11.9 Type 2 diabetes mellitus without complications; E78.5 Hyperlipidemia, unspecified; Z20.822 Contact with and (suspected) exposure to COVID-19; Z98.1 Arthrodesis status; Z79.83 Long term (current) use of bisphosphonates; Z79.899 Other long term (current) drug therapy; M81.0 Age-related osteoporosis without current pathological fracture; M19.90 Unspecified osteoarthritis, unspecified site; I27.20 Pulmonary hypertension, unspecified; F32.A Depression, unspecified; F41.9 Anxiety disorder, unspecified; E03.9 Hypothyroidism, unspecified; I25.10 Atherosclerotic heart disease of native coronary artery without angina pectoris; I25.2 Old myocardial infarction; D64.9 Anemia, unspecified; E87.6 Hypokalemia; E83.42 Hypomagnesemia; E83.39 Other disorders of phosphorus metabolism; R79.89 Other specified abnormal findings of blood chemistry
CPT/HCPCS: 36415; 71045-TC; 80048-TC; 80053-TC; 80076-TC; 83735-TC; 83880; 83970; 84100-TC; 84443-TC; 84484-TC; 85025-TC; 85730-TC; 87081-TC; 93307-TC; 94799-TC; G0378; J1650; J1940; J3475; J3490

== ENCOUNTER 2022-08-01 10:48 | Outpatient (CLI) | payer MEDICARE, OTHER ==
[~2022-08-01 10:48] MED LIST changes: +CHOL100043 PO; +DOXE10CA2 PO; +DULO30CA52 PO; -ERGO500093 PO; +HYDR25TA4 PO; +MELO-107 PO; +QUET25TA PO
== END 2022-08-01 23:59 | disposition home or self-care (01) ==
LOC: MSC 10:48
PROVIDERS: ATTEND Internal Medicine
DX: I11.0 Hypertensive heart disease with heart failure (principal); I50.9 Heart failure, unspecified; R06.00 Dyspnea, unspecified; Z87.440 Personal history of urinary (tract) infections; F41.1 Generalized anxiety disorder; K22.70 Barrett's esophagus without dysplasia; M54.10 Radiculopathy, site unspecified; M43.26 Fusion of spine, lumbar region; M81.0 Age-related osteoporosis without current pathological fracture; G47.00 Insomnia, unspecified; J44.9 Chronic obstructive pulmonary disease, unspecified; G47.33 Obstructive sleep apnea (adult) (pediatric); M19.90 Unspecified osteoarthritis, unspecified site; Z79.899 Other long term (current) drug therapy

== ENCOUNTER → 2022-10-29 | Outpatient (CLI) | payer MEDICARE, OTHER | END | disposition home or self-care (01) | LOC: MSC 15:30 | PROVIDERS: ATTEND Internal Medicine | DX: I11.0 Hypertensive heart disease with heart failure (principal); I50.9 Heart failure, unspecified; R06.00 Dyspnea, unspecified; F41.1 Generalized anxiety disorder; Z87.440 Personal history of urinary (tract) infections; K22.70 Barrett's esophagus without dysplasia; M54.10 Radiculopathy, site unspecified; M43.26 Fusion of spine, lumbar region; M81.0 Age-related osteoporosis without current pathological fracture; G47.00 Insomnia, unspecified; J44.9 Chronic obstructive pulmonary disease, unspecified; G47.33 Obstructive sleep apnea (adult) (pediatric); M19.90 Unspecified osteoarthritis, unspecified site; Z79.899 Other long term (current) drug therapy ==

== ENCOUNTER 2022-11-12 09:15 | Outpatient (CLI) | payer MEDICARE, OTHER | END 2022-11-12 23:59 | disposition home or self-care (01) | LOC: MSC 09:15 | PROVIDERS: ATTEND Internal Medicine | DX: J06.9 Acute upper respiratory infection, unspecified (principal); I11.0 Hypertensive heart disease with heart failure; I50.9 Heart failure, unspecified; R06.00 Dyspnea, unspecified; F41.1 Generalized anxiety disorder; Z87.440 Personal history of urinary (tract) infections; K22.70 Barrett's esophagus without dysplasia; M54.10 Radiculopathy, site unspecified; M43.26 Fusion of spine, lumbar region; M81.0 Age-related osteoporosis without current pathological fracture; G47.00 Insomnia, unspecified; J44.9 Chronic obstructive pulmonary disease, unspecified; G47.33 Obstructive sleep apnea (adult) (pediatric); M19.90 Unspecified osteoarthritis, unspecified site ==

== ENCOUNTER 2022-11-14 11:45 | Outpatient (CLI) | payer MEDICARE, OTHER | END 2022-11-14 23:59 | disposition home or self-care (01) | LOC: MSC 11:45 | PROVIDERS: ATTEND Internal Medicine | DX: Z09 Encounter for follow-up examination after completed treatment for conditions other than malignant neoplasm (principal); I11.0 Hypertensive heart disease with heart failure; I50.9 Heart failure, unspecified; R06.00 Dyspnea, unspecified; F41.1 Generalized anxiety disorder; Z87.440 Personal history of urinary (tract) infections; K22.70 Barrett's esophagus without dysplasia; M54.10 Radiculopathy, site unspecified; M43.26 Fusion of spine, lumbar region; M81.0 Age-related osteoporosis without current pathological fracture; G47.00 Insomnia, unspecified; J44.9 Chronic obstructive pulmonary disease, unspecified; G47.33 Obstructive sleep apnea (adult) (pediatric); M19.90 Unspecified osteoarthritis, unspecified site ==

== ENCOUNTER 2025-08-16 09:14 | Emergency (ER) | payer MEDICARE, OTHER ==
[~2025-08-16] VITALS: Ht 167.6 cm; Wt 62.6 kg
[2025-08-16] MEDS ORDERED: LIDOCAINE 1%-EPI 1:100,000 20 ML VIAL ONE (10:38)
[2025-08-16] MEDS: LIDOCAINE 1%-EPI 1:100,000 50 ML VIAL IJ ONE (11:06)
[2025-08-16 11:47] VITALS: BP 145/70; TEMP 98.6; O2SAT 99
== END 2025-08-16 11:48 | disposition home or self-care (01) ==
LOC: ER 09:17
DX: S01.01XA Laceration without foreign body of scalp, initial encounter (principal); I11.9 Hypertensive heart disease without heart failure; E78.5 Hyperlipidemia, unspecified; R51.9 Headache, unspecified; Z98.1 Arthrodesis status; Z79.899 Other long term (current) drug therapy; W19.XXXA Unspecified fall, initial encounter; Y93.89 Activity, other specified; Y92.009 Unspecified place in unspecified non-institutional (private) residence as the place of occurrence of the external cause; Y99.8 Other external cause status
CPT/HCPCS: 12002; 70450; 72125; 99284; A6403; J3490

== ENCOUNTER 2025-08-21 13:42 | Emergency (ER) | payer MEDICARE, OTHER ==
[~2025-08-21] VITALS: Ht 154.9 cm; Wt 63.5 kg
[2025-08-21 14:18] VITALS: BP 143/75; TEMP 98.7; O2SAT 96
== END 2025-08-21 14:19 | disposition home or self-care (01) ==
LOC: ER 13:42
DX: S01.01XD Laceration without foreign body of scalp, subsequent encounter (principal); I11.9 Hypertensive heart disease without heart failure; E78.5 Hyperlipidemia, unspecified; Z48.02 Encounter for removal of sutures; Z79.899 Other long term (current) drug therapy; Z98.1 Arthrodesis status; X58.XXXD Exposure to other specified factors, subsequent encounter